=== PATIENT | female | born 1940 | race Caucasian/White ===

== ENCOUNTER 2016-12-03 13:47 | Inpatient (IN) | payer MEDICARE, OTHER ==
[~2016-12-03] VITALS: Ht 165.1 cm; Wt 88.5 kg
[2016-12-13] MEDS ORDERED: NAPR220T95 PO (09:21)
[2016-12-26] MEDS ORDERED: SODIUM CHLOR 0.9% 250 ML INJ 250 ML ONE (05:40)
[2016-12-26] MEDS ORDERED: VANCOMYCIN HCL 1000 MG VIAL ONE (05:41)
[2016-12-26] MEDS ORDERED: LACTATED RINGER'S 1000 ML INJ 1,000 ML ONE (05:41)
[2016-12-26 05:53] VITALS: BP 145/73; PULSE 71; RESP 18; TEMP 98; O2SAT 96
[2016-12-26] MEDS ORDERED: GENTAMICIN SULFATE 80 MG/2 ML VIAL ONE (06:12)
[2016-12-26] MEDS ORDERED: ceFAZolin 2 GM PREMIX 50 ML ONE (06:33)
[2016-12-26] MEDS ORDERED: fentaNYL CITRATE 250 MCG/5 ML AMP ONE (06:44)
[2016-12-26] MEDS ORDERED: ACETAMINOPHEN 1000 MG/100 ML VIAL IV ONE (06:45)
[2016-12-26] MEDS ORDERED: MISCELLANEOUS PHARMACY INFORMATION XX ONE (07:15)
[2016-12-26] MEDS ORDERED: SODIUM CHLORIDE 0.9% FLUSH 10 ML FLUSH IV FLUSH PRN (07:15)
[2016-12-26] MEDS ORDERED: MISCELLANEOUS NURSING INFORMATION XX PRN (07:15)
[2016-12-26] MEDS ORDERED: BISACODYL 10 MG SUPP RECTAL PRN (07:15)
[2016-12-26] MEDS ORDERED: ONDANSETRON HCL 4 MG/2 ML VIAL IVP PRN (07:15)
[2016-12-26] MEDS ORDERED: oxyCODONE/ACETAMINOPHEN 5 MG/325 MG TAB PO PRN (07:15)
[2016-12-26] MEDS ORDERED: ACETAMINOPHEN 325 MG TAB PO PRN (07:15)
[2016-12-26] MEDS ORDERED: Post-op Orders (for Pharmacy) MISC XX ONE (07:15)
[2016-12-26] MEDS ORDERED: TRANEXAMIC ACID INJ 1,000 MG in SODIUM CHLORIDE 0.9% INJ 100 ML IV SCH (07:15)
[2016-12-26] MEDS ORDERED: NALOXONE HCL 0.4 MG/ML AMP IV PRN (07:15)
[2016-12-26] MEDS ORDERED: MAGNESIUM HYDROXIDE SUSP 30 ML CUP PO PRN (07:15)
[2016-12-26] MEDS ORDERED: ALUMINUM/MAGNESIUM/SIMETH 30 ML CUP PO PRN (07:15)
[2016-12-26] MEDS ORDERED: EXPAREL PERI-ARTICULAR INJECTION (TOTAL VOL. 60 ML) P-ARTICULR SCH ×2 (07:45)
[2016-12-26] MEDS: SODIUM CHLORIDE 0.9% FLUSH 10 ML FLUSH IV FLUSH SCH ×2 (09:00→19:56)
--- NOTE | 2016-12-26 09:13 | PD.OP ---
Operative Report Preoperative Diagnosis: (1) Osteoarthritis of right hip Postoperative Diagnosis: (1) Osteoarthritis of right hip Procedure: Right Total Hip Arthroplasty - Anterior Approach Anesthesia: Spinal Surgeon: Roel Renteria MD Industrial Boilermaker(s): Jarett OTERO Operation and Findings: see dictation Roel Renteria MD Dec 26, 2016 09:13
[2016-12-26] MEDS ORDERED: DO NOT ADM ANY ANTICOAGULANT DRUGS PRN (09:31)
[2016-12-26] MEDS: LACTATED RINGER'S 1000 ML INJ 1,000 ML IV SCH ×2 (10:04→19:59)
[2016-12-26] MEDS: HYDROmorphone HCL PCA 6 MG/30 ML IV SCH (10:05)
[2016-12-26 12:00] VITALS: BP 116/56; PULSE 66; RESP 17; TEMP 95.9; O2SAT 99
[2016-12-26] MEDS ORDERED: PROPOFOL 200 MG/20 ML AMP IV ONE (12:00)
[2016-12-26] MEDS ORDERED: ePHEDrine/NS 25 MG/5 ML SYR IV ONE (12:00)
[2016-12-26] MEDS ORDERED: PHENYLEPH/NS 1000 MCG/10 ML SYR IV ONE (12:00)
--- NOTE | 2016-12-26 12:43 | RADRPT ---
EXAM DATE/TIME: 12/26/2016 07:52 [facility] COMPARISON: No previous studies available for comparison. INDICATIONS : Right hip total arthroplasty. OR. MEDICAL HISTORY : Hypercholesterolemia. Hiatal hernia. Arthritis. SURGICAL HISTORY : Tubal ligation. Total hip arthroplasty, left. ENCOUNTER: Initial ACUITY: 1 day PAIN SCORE: Non-responsive. LOCATION: Right hip FINDINGS: 2 AP views of the right hip were obtained and demonstrate the patient status post arthroplasty. The f emoral and acetabular components are intact and in normal alignment. CONCLUSION: Status post right hip arthroplasty. Dangelo Andino MD on December 26, 2016 at 12:41 Board Certified Radiologist. This report was verified electronically.
[2016-12-26] MEDS: ceFAZolin 2 GM PREMIX 50 ML IV SCH ×2 (12:58→17:44)
[2016-12-26] MEDS: PCA - TOTAL MG DILAUDID DELIVERED PER SHIFT OTHER SCH ×2 (14:00→22:00)
--- NOTE | 2016-12-26 14:15 | PD.CONS ---
HPI Service [facility] Consult Requested By Roel Renteria MD Reason for Consult Medical Management. Primary Care Physician Deyanira Sorto MD Diagnoses: History of Present Illness This is a pleasant 76 y/o Female with Severe OA of the Right Hip status post Right Total HIp Arthroplasty. The patient has Primary osteoarthritis of the pelvic area, with Hip pain, Degenerative Disc disease on Lumbar area, Basically the patient states she has no past medical History other from what expressed. Past Family Social History Allergies: Coded Allergies: No Known Allergies (Unverified , 12/26/16) Past Medical History Bilateral Hip Osteoarthritis Degenerative Disc disease Past Surgical History Left Total Hip Arthroplasty Reported Medications Reported Meds & Active Scripts Active Reported Aleve (Naproxen Sodium) 220 Mg Tab 220 Mg PO BID PRN Active Ordered Medications Current Medications Medications (Trade) Dose Ordered Sig/Tim Route Start Time Stop Time Status Last Admin (Lr 1000 ml Inj) 1,000 ml @ 80 mls/hr [id number] IV 12/26/16 07:08 12/26/16 10:04 (NS Flush) 2 ml UNSCH PRN IV FLUSH 12/26/16 07:15 Sodium Chloride 2 ml 2 ml BID IV FLUSH 12/26/16 09:00 (Ancef 2 Gm Premix) 50 ml @ 100 mls/hr Q6H IV 12/26/16 13:00 12/27/16 01:29 12/26/16 12:58 (Xarelto) 10 mg Q24H PO 12/27/16 09:00 Miscellaneous Information UNSCH PRN XX 12/26/16 07:15 (Percocet 5-325 Mg) 1 tab Q4H PRN PO 12/26/16 07:15 (Percocet 5-325 Mg) 2 tab Q4H PRN PO 12/26/16 07:15 (Tylenol) 650 mg Q6H PRN PO 12/26/16 07:15 (Zofran Inj) 4 mg Q6H PRN IVP 12/26/16 07:15 (Colace) 100 mg BID PO 12/27/16 09:00 (Mag-Al Plus Susp Liq) 30 ml Q6H PRN PO 12/26/16 07:15 (Restoril) 15 mg HS PRN PO 12/26/16 21:00 (Dulcolax Supp) 10 mg DAILY PRN RECTAL 12/26/16 07:15 (Milk Of Magnesia Liq) 30 ml DAILY PRN PO 12/26/16 07:15 (Narcan Inj) 0.4 mg UNSCH PRN IV 12/26/16 07:15 12/28/16 07:14 (Dilaudid CROSS COUNTRY/TRACK AND FIELD COACH Inj) 6 mg UNSCH IV 12/26/16 07:15 12/28/16 07:14 12/26/16 10:05 CROSS COUNTRY/TRACK AND FIELD COACH Dosage Infused (Pha) 1 1 Q8HR OTHER 12/26/16 07:15 12/28/16 07:14 (Exparel Pf 1.3% Inj/NS Inj) 60 ml @ 120 mls/hr ONCE P-ARTICULR 12/26/16 07:45 12/27/16 07:44 12/26/16 08:07 Miscellaneous Information ALL NURSING DEPARTME... UNSCH PRN .XX 12/26/16 09:31 12/27/16 09:30 Family History Mother with DM II, CAD Father with CAD Brother with Lung Cancer Social History Lives with her and smoked half of cigarettes daily until sixteen years ago, drinks alcohol occasional. Physical Exam Vital Signs Vital Signs Date Time Temp Pulse Resp B/P Pulse Ox O2 Delivery O2 Flow Rate FiO2 12/26/16 13:02 Nasal Cannula 2.00 12/26/16 10:15 69 14 112/63 94 Nasal Cannula 2 12/26/16 10:05 14 12/26/16 10:00 70 13 110/60 99 Nasal Cannula 3 12/26/16 09:45 73 13 107/56 98 Nasal Cannula 3 12/26/16 09:30 97.4 80 14 109/58 97 Nasal Cannula 3 12/26/16 05:53 98.0 71 18 145/73 96 Physical Exam GENERAL: Obese patient, in no apparent distress. SKIN: No rashes, ecchymoses or lesions. Cool and dry. HEAD: Atraumatic. Normocephalic. No temporal or scalp tenderness. EYES: Pupils equal round and reactive. Extraocular motions intact. No scleral icterus. No injection or drainage. ENT: Nose without bleeding, purulent drainage or septal hematoma. Throat without erythema, tonsillar hypertrophy or exudate. Uvula midline. Airway patent. NECK: Trachea midline. No JVD or lymphadenopathy. Supple, nontender, no meningeal signs. CARDIOVASCULAR: Regular rate and rhythm without murmurs, gallops, or rubs. RESPIRATORY: Clear to auscultation. Breath sounds equal bilaterally. No wheezes , rales, or rhonchi. GASTROINTESTINAL: Abdomen soft, non-tender, nondistended. No hepato-splenomegaly , or palpable masses. No guarding. MUSCULOSKELETAL: Extremities without clubbing,Right Hip dressed. NEUROLOGICAL: Awake and alert. Cranial nerves II through XII intact. Motor and sensory grossly within normal limits. Five out of 5 muscle strength in all muscle groups. Normal speech. Laboratory Laboratory Tests Test 12/26/16 05:55 Blood Type A POSITIVE Antibody Screen NEGATIVE Imaging Last Impressions Hip X-Ray 12/26/16 0000 Signed Impressions: Service Date/Time: December 07:52 - CONCLUSION: Status post right hip arthroplasty. Dangelo Andino MD Assessment and Plan Assessment and Plan This is a pleasant 76 y/o Female with Bilateral Hip OA and Degenerative Disc disease status post Right Total Hip Arthroplasty today, continue Pain medicine, Physical Therapy Assistant In Nursing for discharge, Prakash for DVT prophylaxis starting tomorrow. she was a smoker will give Bronchodilator, Mucolytic and Incentive spirometry and early ambulation recommended complete laboratory by tomorrow, TSH, Free T4, Hemoglobin A1C, Lipid profile. CBC, BMP. Code Status Full Code. Discussed Condition With Patient in the room. Deni Simpson MD Dec 26, 2016 14:15
[2016-12-26 15:21] VITALS: O2SAT 98
[2016-12-26 15:55] VITALS: BP 140/67; PULSE 77; RESP 14; TEMP 96; O2SAT 100
[2016-12-26] MEDS: RESP: ALBUTEROL 2.5 MG/IPRATROPIUM 0.5 MG NEB (SCH) NEB ×2 (16:00→19:57)
[2016-12-26] MEDS: guaiFENesin E.R. 600 MG TAB PO SCH (19:58)
[2016-12-26 20:00] VITALS: BP 144/74; PULSE 66; RESP 16; TEMP 96.4; O2SAT 99
[2016-12-26 20:02] VITALS: O2SAT 97
[2016-12-26] MEDS ORDERED: TEMAZEPAM 15 MG CAP PO PRN (21:00)
[2016-12-27] VITALS: BP 144/72; PULSE 76; RESP 17; TEMP 97; O2SAT 98
[2016-12-27] MEDS: ceFAZolin 2 GM PREMIX 50 ML IV SCH (00:25)
[2016-12-27 04:00] VITALS: BP 150/70; PULSE 88; RESP 16; TEMP 97.3; O2SAT 100
[2016-12-27] MEDS: RESP: ALBUTEROL 2.5 MG/IPRATROPIUM 0.5 MG NEB (SCH) NEB ×4 (04:00→21:22)
[2016-12-27 05:34] LABS: HEMATOCRIT 35.5 % (35.0-46.0); REVIEW FLAG FINAL
[2016-12-27 05:48] LABS: ANION GAP 8 MEQ/L (5-15); BICARBONATE 27.9 MEQ/L (21.0-32.0); BLOOD UREA NITROGEN 9 MG/DL (7-18); CHLORIDE 98 MEQ/L (98-107); FREE T4 0.96 NG/DL (0.76-1.46); GLOMERULAR FILTRATION RATE 90 ML/MIN (>89); MAGNESIUM 2.1 MG/DL (1.5-2.5); POTASSIUM 4.1 MEQ/L (3.5-5.1); SODIUM (NA) 134 MEQ/L (136-145)
[2016-12-27] MEDS: PCA - TOTAL MG DILAUDID DELIVERED PER SHIFT OTHER SCH ×2 (06:00→22:00)
[2016-12-27 07:59] VITALS: BP 149/72; PULSE 75; RESP 16; TEMP 97.8; O2SAT 98
[2016-12-27] MEDS: DOCUSATE SODIUM 100 MG CAP PO SCH ×2 (09:09→20:25)
[2016-12-27] MEDS: guaiFENesin E.R. 600 MG TAB PO SCH ×2 (09:10→20:25)
[2016-12-27] MEDS: RIVAROXABAN 10 MG TAB PO SCH (09:10)
[2016-12-27] MEDS: HYDROmorphone HCL PCA 6 MG/30 ML IV SCH (10:45)
--- NOTE | 2016-12-27 11:04 | HHI.PR ---
Subjective Remarks This is a pleasant 76 y/o Female with Severe OA of the Right Hip status post Right Total HIp Arthroplasty. The patient has Primary osteoarthritis of the pelvic area, with Hip pain, Degenerative Disc disease on Lumbar area, Basically the patient states she has no past medical History other from what expressed. 12/27: Seen in her bedroom discussed with her Daughter Mrs. Lou, No nausea, vomit or diarrhea working with Physical Therapy, complaint of Pain on her Right Hip, encourage to continue PT Objective Vital Signs Date Time Temp Pulse Resp B/P Pulse Ox O2 Delivery O2 Flow Rate FiO2 12/27/16 10:45 18 12/27/16 09:20 21 12/27/16 07:59 97.8 75 16 149/72 98 12/27/16 04:00 97.3 88 16 150/70 100 12/27/16 00:00 97.0 76 17 144/72 98 12/26/16 20:02 97 Nasal Cannula 2.00 12/26/16 20:00 96.4 66 16 144/74 99 12/26/16 18:56 Nasal Cannula 2.00 12/26/16 15:55 96.0 77 14 140/67 100 12/26/16 15:21 98 Nasal Cannula 2.00 12/26/16 13:02 Nasal Cannula 2.00 12/26/16 12:00 95.9 66 17 116/56 99 12/26/16 11:30 97.5 68 15 125/67 97 Nasal Cannula 2 12/26/16 11:15 69 15 123/68 96 Nasal Cannula 2 I/O 12/26/16 12/26/16 12/26/16 12/27/16 12/27/16 12/27/16 07:00 15:00 23:00 07:00 15:00 23:00 Intake Total 2344 ml 623 ml 913 ml Output Total 1100 ml 750 ml 600 ml Balance 1244 ml -127 ml 313 ml Intake Oral 240 ml 240 ml IV Total 644 ml 383 ml 673 ml Other 1700 ml Output Urine Total 800 ml 750 ml 600 ml Estimated Blood Loss 300 ml # Bowel Movements 0 0 Result Diagram: 12/27/16 0412 12/27/16 0412 Imaging Last Impressions Hip X-Ray 12/26/16 0000 Signed Impressions: Service Date/Time: December 07:52 - CONCLUSION: Status post right hip arthroplasty. Dangelo Andino MD Procedures status post Right Total Hip Arthroplasty 12/26/16 Other Results Laboratory Tests Test 12/26/16 12/27/16 05:55 04:12 Blood Type A POSITIVE Antibody Screen NEGATIVE Hemoglobin 12.0 GM/DL Hematocrit 35.5 % Sodium Level 134 MEQ/L Potassium Level 4.1 MEQ/L Chloride Level 98 MEQ/L Carbon Dioxide Level 27.9 MEQ/L Anion Gap 8 MEQ/L Blood Urea Nitrogen 9 MG/DL Creatinine 0.64 MG/DL Estimat Glomerular Filtration 90 ML/MIN Rate Random Glucose 98 MG/DL Calcium Level 8.4 MG/DL Phosphorus Level 2.8 MG/DL Magnesium Level 2.1 MG/DL Free Thyroxine 0.96 NG/DL Thyroid Stimulating Hormone 1.620 uIU/ML 3rd Gen Objective Remarks GENERAL: Obese patient, in no apparent distress. SKIN: No rashes, ecchymoses or lesions. Cool and dry. HEAD: Atraumatic. Normocephalic. No temporal or scalp tenderness. EYES: Pupils equal round and reactive. Extraocular motions intact. No scleral icterus. No injection or drainage. ENT: Nose without bleeding, purulent drainage or septal hematoma. Throat without erythema, tonsillar hypertrophy or exudate. Uvula midline. Airway patent. NECK: Trachea midline. No JVD or lymphadenopathy. Supple, nontender, no meningeal signs. CARDIOVASCULAR: Regular rate and rhythm without murmurs, gallops, or rubs. RESPIRATORY: Clear to auscultation. Breath sounds equal bilaterally. No wheezes , rales, or rhonchi. GASTROINTESTINAL: Abdomen soft, non-tender, nondistended. No hepato-splenomegaly , or palpable masses. No guarding. MUSCULOSKELETAL: Extremities without clubbing,Right Hip dressed. NEUROLOGICAL: Awake and alert. Cranial nerves II through XII intact. Motor and sensory grossly within normal limits. Five out of 5 muscle strength in all muscle groups. Normal speech. Medications and IVs Current Medications Medications (Trade) Dose Ordered Sig/Tim Route Start Time Stop Time Status Last Admin (Lr 1000 ml Inj) 1,000 ml @ 80 mls/hr [id number] IV 12/26/16 07:08 12/26/16 19:59 (NS Flush) 2 ml UNSCH PRN IV FLUSH 12/26/16 07:15 (NS Flush) 2 ml BID IV FLUSH 12/26/16 09:00 (Xarelto) 10 mg Q24H PO 12/27/16 09:00 12/27/16 09:10 Miscellaneous Information UNSCH PRN XX 12/26/16 07:15 (Percocet 5-325 Mg) 1 tab Q4H PRN PO 12/26/16 07:15 (Percocet 5-325 Mg) 2 tab Q4H PRN PO 12/26/16 07:15 (Tylenol) 650 mg Q6H PRN PO 12/26/16 07:15 (Zofran Inj) 4 mg Q6H PRN IVP 12/26/16 07:15 12/26/16 17:44 (Colace) 100 mg BID PO 12/27/16 09:00 12/27/16 09:09 (Mag-Al Plus Susp Liq) 30 ml Q6H PRN PO 12/26/16 07:15 (Restoril) 15 mg HS PRN PO 12/26/16 21:00 (Dulcolax Supp) 10 mg DAILY PRN RECTAL 12/26/16 07:15 (Milk Of Magnesia Liq) 30 ml DAILY PRN PO 12/26/16 07:15 (Narcan Inj) 0.4 mg UNSCH PRN IV 12/26/16 07:15 12/28/16 07:14 (Dilaudid AUTO SELF SERVICE STATION ATTENDANT Inj) 6 mg UNSCH IV 12/26/16 07:15 12/28/16 07:14 12/27/16 10:45 AUTO SELF SERVICE STATION ATTENDANT Dosage Infused (Pha) 1 Q8HR OTHER 12/26/16 07:15 12/28/16 07:14 12/27/16 06:00 (Mucinex Er) 600 mg BID PO 12/26/16 21:00 12/27/16 09:10 A/P Assessment and Plan This is a pleasant 76 y/o Female with Bilateral Hip OA and Degenerative Disc disease status post Right Total Hip Arthroplasty today, continue Pain medicine, Physical Therapy Business Office Assistant for discharge, Prakash for DVT prophylaxis starting tomorrow. she was a smoker will give Bronchodilator, Mucolytic and Incentive spirometry and early ambulation recommended, today stable continue present care, laboratory reviewed Hemoglobin 12 DVT prophylaxis with Xarelto Code Status Full Code. Discussed Condition With Patient in the room. and her Daughter Mrs. Lou. Discharge Planning Okay to Discharge from medicine standpoint once indicated so by specialist. Deni Simpson MD Dec 27, 2016 11:04
[2016-12-27 12:00] VITALS: BP 140/60; PULSE 83; RESP 14; TEMP 96.7; O2SAT 95
[2016-12-27 12:13] LABS: HEMOGLOBIN A1a 1.4 %; HEMOGLOBIN A1b 1.8 %; HEMOGLOBIN Ao 85.4 %; HEMOGLOBIN LA1C 1.9 %; HEMOGLOBIN P3 3.6 %
[2016-12-27] MEDS: oxyCODONE/ACETAMINOPHEN 5 MG/325 MG TAB PO PRN ×2 (14:00→18:25)
[2016-12-27 16:00] VITALS: BP 121/57; PULSE 85; RESP 16; TEMP 95.5; O2SAT 94
--- NOTE | 2016-12-27 17:40 | MP ---
cc: KRISTINA ROCK DATE OF SURGERY 12/26/16 PREOPERATIVE DIAGNOSIS Right hip severe osteoarthritis. POSTOPERATIVE DIAGNOSIS Right hip severe osteoarthritis. PROCEDURE Right total hip arthroplasty - anterior approach using [employer] high offset 11-mm corail stem, a 36 mm +8.5 metallic femoral head and a 52 mm pinnacle cup with neutral polyethylene liner. ANESTHESIA Spinal SURGEON Julien Rock MD EXCEPTIONAL NEEDS TEACHER SURGEON SHANNA Stover ESTIMATED BLOOD LOSS 200 mL DRAINS None SPECIMEN None COMPLICATIONS None known. INDICATION Parveen Wynne is a 76-year-old female with severe debilitating right hip [id number] osteoarthritis. She is indicated for a total hip arthroplasty. Risks, benefits have thoroughly been discussed and a detailed informed consent has been obtained. The airplane first officer, Jarett Powers, is an advanced registered nurse practitioner who is sub specialized in orthopedic surgery. His skill set was medically necessary for the performance of the operation. PROCEDURE IN DETAIL The patient was brought to the operating room, given a spinal, placed on a well-padded Sofya table, prepped and draped in usual sterile fashion. IV antibiotics were given. Time-out was completed. The anterior approach to the hip performed with coagulation of the crossing vessels, identification of the hip capsule. T capsulotomy tag stitch placed. Retractors about the femoral neck in accordance with preoperative planning. Oscillating saw used to perform a femoral neck cut and then proceeded to remove the femoral head noting the severe arthritis. The acetabular labrum was resected, then proceeded to place deep retractors about the acetabulum, sequential reaming up to size 51 and impacted a 52 mm cup into position with excellent stability. Hole eliminator placed, polyethylene placed. Attention was drawn to the femur. Lifting hook was used. The leg externally rotated, dropped across the opposite side. A deep retractor was placed. We used a box chisel, released the superior capsule, proceeded with jermaine vieira to a size 8, size 9, size 10, size 11. With the size [address] place, we then did proceed with calcar reaming and then did a trial reduction with the high offset neck length because that is what she has on the contralateral side. This size looked very good, excellent fit. This was done to the final component. We proceeded to impact the final component in place and then trialed neck length again and decided to go with the 8.5 head length, reduced. Excellent reduction and stability. We proceeded to irrigate out with copious amounts of irrigation. We closed the capsule layer then proceed to close in layers of absorbable suture, subcuticular on the skin. Steri-Strips applied. Sterile dressing applied. The patient was awaken and returned to recovery room in stable condition. MD MICHELE Mario/ /9:11 AM /5:29 PM
--- NOTE | 2016-12-27 18:44 | PD.ORT.PN ---
Subjective Subjective Remarks Patient comfortable. Pain controlled. OOB sitting on commode. Daughter present. Objective Vitals Vital Signs Date Time Temp Pulse Resp B/P Pulse Ox O2 Delivery O2 Flow Rate FiO2 12/27/16 16:00 95.5 85 16 121/57 94 12/27/16 12:00 96.7 83 14 140/60 95 12/27/16 10:45 18 12/27/16 09:20 21 12/27/16 07:59 97.8 75 16 149/72 98 12/27/16 04:00 97.3 88 16 150/70 100 12/27/16 00:00 97.0 76 17 144/72 98 12/26/16 20:02 97 Nasal Cannula 2.00 12/26/16 20:00 96.4 66 16 144/74 99 12/26/16 18:56 Nasal Cannula 2.00 I/O 12/26/16 12/26/16 12/26/16 12/27/16 12/27/16 12/27/16 07:00 15:00 23:00 07:00 15:00 23:00 Intake Total 2344 ml 623 ml 913 ml 720 ml Output Total 1100 ml 750 ml 600 ml 800 ml Balance 1244 ml -127 ml 313 ml -80 ml Intake Oral 240 ml 240 ml 720 ml IV Total 644 ml 383 ml 673 ml Other 1700 ml Output Urine Total 800 ml 750 ml 600 ml 800 ml Estimated Blood Loss 300 ml # Voids 3 # Bowel Movements 0 0 Result Diagram: 12/27/16 0412 12/27/16 0412 Procedures Right Total Hip Arthroplasty Anterior Approach Objective Remarks Right Hip dressing C/D/I calves soft negative Homans NVI Assessment & Plan Assessment and Plan POD #1 Left Total Hip Arthroplasty Anterior Approach PLAN: Pain management - Percocet DVT prophylaxis - Xarelto Physical therapy - weight bearing as tolerated No touch dressing Discharge planning - anticipating Home with [facility] Friday F/U in [address] Renteria or SHANNA in office Jarett Powers Dec 27, 2016 18:44
[2016-12-27] MEDS ORDERED: OXYC1TAB63 PO (18:46)
[2016-12-27] MEDS ORDERED: XARE10TA PO (18:46)
--- NOTE | 2016-12-27 19:04 | HHI.FF ---
Face to Face Verification Diagnosis: (1) Status post left hip replacement Physical Therapy Gait training Hip: Total hip, Protocol: Right Right LE Weight Bearing: WB as tolerated Right LE Range of Motion: Active Assistive ROM Left LE Weight Bearing: WB as tolerated Left LE Range of Motion: Active ROM Nursing Dressing Changes: Do not change dressing I have seen patient Parveen Wynne on 12/27/16. My clinical findings support the need for the requested home health care services because: High risk of falls I certify that my clinical findings support that this patient is homebound because: Post-op weakness Jarett Powers Dec 27, 2016 19:04
[2016-12-27] MEDS ORDERED: COMMODE 3-IN-11 MIS (19:06)
[2016-12-27] MEDS ORDERED: WALKER WHEELS/F1 MIS (19:06)
[2016-12-27 19:30] VITALS: BP 146/54; PULSE 87; RESP 17; TEMP 99.8; O2SAT 92
[2016-12-27] MEDS: SODIUM CHLORIDE 0.9% FLUSH 10 ML FLUSH IV FLUSH SCH (20:27)
[2016-12-28] VITALS: BP 145/68; PULSE 97; RESP 18; TEMP 99.7; O2SAT 92
[2016-12-28] MEDS: oxyCODONE/ACETAMINOPHEN 5 MG/325 MG TAB PO PRN ×3 (02:48→12:53)
[2016-12-28] MEDS: RESP: ALBUTEROL 2.5 MG/IPRATROPIUM 0.5 MG NEB (SCH) NEB ×2 (04:00→09:53)
[2016-12-28 04:45] VITALS: BP 137/65; PULSE 94; RESP 19; TEMP 97.9; O2SAT 92
[2016-12-28] MEDS: PCA - TOTAL MG DILAUDID DELIVERED PER SHIFT OTHER SCH (06:00)
--- NOTE | 2016-12-28 07:09 | PD.ORT.PN ---
Subjective Post Op Day #: 2 Subjective Remarks Patient sitting upright comfortable in bed. Admits she walked successfully yesterday down the [place] with PT. Accompanied by family member. Feels ready to be discharged to home today. Objective Vitals Vital Signs Date Time Temp Pulse Resp B/P Pulse Ox O2 Delivery O2 Flow Rate FiO2 12/28/16 04:45 97.9 94 19 137/65 92 12/28/16 00:00 99.7 97 18 145/68 92 12/27/16 19:40 Room Air 12/27/16 19:30 99.8 87 17 146/54 92 12/27/16 16:00 95.5 85 16 121/57 94 12/27/16 12:00 96.7 83 14 140/60 95 12/27/16 10:45 18 12/27/16 09:20 21 12/27/16 07:59 97.8 75 16 149/72 98 I/O 12/27/16 12/27/16 12/27/16 12/28/16 12/28/16 12/28/16 07:00 15:00 23:00 07:00 15:00 23:00 Intake Total 913 ml 720 ml 1392 ml 240 ml Output Total 600 ml 800 ml Balance 313 ml -80 ml 1392 ml 240 ml Intake Oral 240 ml 720 ml 480 ml 240 ml IV Total 673 ml 912 ml Output Urine Total 600 ml 800 ml # Voids 3 1 5 # Bowel Movements 0 0 0 Result Diagram: 12/27/16 0412 12/27/16 0412 Procedures Right Total Hip Arthroplasty Anterior Approach Objective Remarks Right Hip dressing C/D/I calves soft negative Homans NVI Assessment & Plan Ortho Post Op Day #: 2 Problem List: (1) Status post total hip replacement, right (2) Osteoarthritis of right hip (3) Primary localized osteoarthrosis, pelvic region and thigh Assessment and Plan POD #2 Right Total Hip Arthroplasty Anterior Approach PLAN: Pain management - Percocet DVT prophylaxis - Xarelto Physical therapy - weight bearing as tolerated No touch dressing Discharge planning - discharge today to Home with [facility] F/U in [address] Renteria or SHANNA in office Yolanda Malik Dec 28, 2016 07:09
[2016-12-28] MEDS: guaiFENesin E.R. 600 MG TAB PO SCH (07:50)
[2016-12-28] MEDS: RIVAROXABAN 10 MG TAB PO SCH (07:50)
[2016-12-28] MEDS: DOCUSATE SODIUM 100 MG CAP PO SCH (07:50)
[2016-12-28 08:00] VITALS: BP 119/52; PULSE 80; RESP 16; TEMP 98.1; O2SAT 94
[2016-12-28] MEDS: SODIUM CHLORIDE 0.9% FLUSH 10 ML FLUSH IV FLUSH SCH (08:52)
--- NOTE | 2016-12-28 09:45 | HHI.PR ---
Subjective Remarks This is a pleasant 76 y/o Female with Severe OA of the Right Hip status post Right Total HIp Arthroplasty. The patient has Primary osteoarthritis of the pelvic area, with Hip pain, Degenerative Disc disease on Lumbar area, Basically the patient states she has no past medical History other from what expressed. 12/28: Seen in her bedroom, her Nurse Miss Benavides, ready to go home, no nausea, vomit or diarrhea, Her Daughter Mrs. Lou, worked with Physical Therapy. Objective Vital Signs Date Time Temp Pulse Resp B/P Pulse Ox O2 Delivery O2 Flow Rate FiO2 12/28/16 07:59 Room Air 12/28/16 04:45 97.9 94 19 137/65 92 12/28/16 00:00 99.7 97 18 145/68 92 12/27/16 19:40 Room Air 12/27/16 19:30 99.8 87 17 146/54 92 12/27/16 16:00 95.5 85 16 121/57 94 12/27/16 12:00 96.7 83 14 140/60 95 12/27/16 10:45 18 I/O 12/27/16 12/27/16 12/27/16 12/28/16 12/28/16 12/28/16 07:00 15:00 23:00 07:00 15:00 23:00 Intake Total 913 ml 720 ml 1392 ml 404 ml Output Total 600 ml 800 ml Balance 313 ml -80 ml 1392 ml 404 ml Intake Oral 240 ml 720 ml 480 ml 240 ml IV Total 673 ml 912 ml 164 ml Output Urine Total 600 ml 800 ml # Voids 3 1 5 # Bowel Movements 0 0 0 Result Diagram: 12/27/16 0412 12/27/16 0412 Imaging Last Impressions Hip X-Ray 12/26/16 0000 Signed Impressions: Service Date/Time: December 07:52 - CONCLUSION: Status post right hip arthroplasty. Dangelo Andino MD Procedures status post Right Total Hip Arthroplasty 12/26/16 Other Results Laboratory Tests Test 12/26/16 12/27/16 05:55 04:12 Blood Type A POSITIVE Antibody Screen NEGATIVE Hemoglobin 12.0 GM/DL Hematocrit 35.5 % Sodium Level 134 MEQ/L Potassium Level 4.1 MEQ/L Chloride Level 98 MEQ/L Carbon Dioxide Level 27.9 MEQ/L Anion Gap 8 MEQ/L Blood Urea Nitrogen 9 MG/DL Creatinine 0.64 MG/DL Estimat Glomerular Filtration 90 ML/MIN Rate Random Glucose 98 MG/DL Hemoglobin A1c 5.4 % Calcium Level 8.4 MG/DL Phosphorus Level 2.8 MG/DL Magnesium Level 2.1 MG/DL Free Thyroxine 0.96 NG/DL Thyroid Stimulating Hormone 1.620 uIU/ML 3rd Gen Objective Remarks GENERAL: Obese patient, in no apparent distress. SKIN: No rashes, ecchymoses or lesions. Cool and dry. HEAD: Atraumatic. Normocephalic. No temporal or scalp tenderness. EYES: Pupils equal round and reactive. Extraocular motions intact. No scleral icterus. No injection or drainage. ENT: Nose without bleeding, purulent drainage or septal hematoma. Throat without erythema, tonsillar hypertrophy or exudate. Uvula midline. Airway patent. NECK: Trachea midline. No JVD or lymphadenopathy. Supple, nontender, no meningeal signs. CARDIOVASCULAR: Regular rate and rhythm without murmurs, gallops, or rubs. RESPIRATORY: Clear to auscultation. Breath sounds equal bilaterally. No wheezes , rales, or rhonchi. GASTROINTESTINAL: Abdomen soft, non-tender, nondistended. No hepato-splenomegaly , or palpable masses. No guarding. MUSCULOSKELETAL: Extremities without clubbing,Right Hip dressed. NEUROLOGICAL: Awake and alert. Cranial nerves II through XII intact. Motor and sensory grossly within normal limits. Five out of 5 muscle strength in all muscle groups. Normal speech. Medications and IVs Current Medications Medications (Trade) Dose Ordered Sig/Tim Route Start Time Stop Time Status Last Admin (NS Flush) 2 ml UNSCH PRN IV FLUSH 12/26/16 07:15 (NS Flush) 2 ml BID IV FLUSH 12/26/16 09:00 (Xarelto) 10 mg Q24H PO 12/27/16 09:00 12/28/16 07:50 Miscellaneous Information UNSCH PRN XX 12/26/16 07:15 (Percocet 5-325 Mg) 1 tab Q4H PRN PO 12/26/16 07:15 12/28/16 07:51 (Percocet 5-325 Mg) 2 tab Q4H PRN PO 12/26/16 07:15 (Tylenol) 650 mg Q6H PRN PO 12/26/16 07:15 (Zofran Inj) 4 mg Q6H PRN IVP 12/26/16 07:15 12/26/16 17:44 (Colace) 100 mg BID PO 12/27/16 09:00 12/28/16 07:50 (Mag-Al Plus Susp Liq) 30 ml Q6H PRN PO 12/26/16 07:15 (Restoril) 15 mg HS PRN PO 12/26/16 21:00 (Dulcolax Supp) 10 mg DAILY PRN RECTAL 12/26/16 07:15 (Milk Of Magnesia Liq) 30 ml DAILY PRN PO 12/26/16 07:15 12/28/16 07:51 (Mucinex Er) 600 mg BID PO 12/26/16 21:00 12/28/16 07:50 A/P Assessment and Plan This is a pleasant 76 y/o Female with Bilateral Hip OA and Degenerative Disc disease status post Right Total Hip Arthroplasty today, continue Pain medicine, Physical Therapy Scrap Piler for discharge, Prakash for DVT prophylaxis starting tomorrow. she was a smoker will give Bronchodilator, Mucolytic and Incentive spirometry and early ambulation recommended, today stable continue present care, laboratory reviewed Hemoglobin 12 DVT prophylaxis with Xarelto Code Status Full Code. Discussed Condition With Patient in the room. and her Daughter Mrs. Lou. Discharge Planning Okay to Discharge from medicine standpoint once indicated by her Attending physician Deni Simpson MD Dec 28, 2016 09:45
[2016-12-28 12:00] VITALS: BP 122/62; PULSE 82; RESP 16; TEMP 97.1; O2SAT 93
--- NOTE | 2017-01-06 16:06 | MD ---
cc: KRISTINA ROCK M.D. ADMISSION DATE: 12/26/2016 DISCHARGE DATE: 12/28/2016 ADMITTING DIAGNOSIS Right hip severe osteoarthritis. PROCEDURE Right total hip arthroplasty. BRIEF HISTORY The patient is a 76-year-old female with severe debilitating right hip [id number] osteoarthritis. She is indicated for a total hip arthroplasty. She underwent preoperative clearance, the surgical consent was signed. HOSPITAL COURSE She came in through same-day surgery, underwent surgery without complication. She was maintained on 23-hour IV antibiotics. She was initiated with DVT prophylaxis. Medical consultation was obtained, physical therapy consultation was obtained. She was transitioned from IV to p.o. pain medication, did well during the hospitalization, did not have complications and on postop day #2 she was discharged. Labs and vital signs remained stable. DISPOSITION She was discharged home with home health care for continuation of rehabilitation. She was to continue on standard medication as well as prescription for Percocet for pain management, Xarelto for DVT prophylaxis. She will continue on regular diet with followup scheduled in the office in two weeks. Dictated by: SHANNA Ngo MD MICHELE Mario/CRISTIAN /8:51 AM /4:06 PM
== END 2016-12-28 14:51 | disposition home health service (06) | DRG 470 ==
LOC: HSDI 12-26 05:05 → N06A 12-26 12:08
PROVIDERS: ADMIT Orthopaedic Surgery Sports Medicine; ATTEND Orthopaedic Surgery Sports Medicine
PROC: 0SR90JA Replacement of Right Hip Joint with Synthetic Substitute, Uncemented, Open Approach (ICD-10-PCS; principal; 2016-12-26 07:02)
DX: M16.11 Unilateral primary osteoarthritis, right hip (principal); E66.9 Obesity, unspecified; M51.36 Other intervertebral disc degeneration, lumbar region; G25.81 Restless legs syndrome; Z87.891 Personal history of nicotine dependence; Z68.32 Body mass index [BMI] 32.0-32.9, adult; Z96.642 Presence of left artificial hip joint
CPT/HCPCS: 73502; 76000; 80048; 83036; 83735; 84100; 84439; 84443; 85014; 85018; 86850; 86900; 86901; 94150; 94640; 94664; C1776; C9290; J0131; J0690; J1170; J1580; J2370; J2405; J3010; J3370; J7050; J7120

== ENCOUNTER → 2016-12-13 | Outpatient (CLI) | payer MEDICARE, OTHER ==
[~2016-12-13] MED LIST: ACET650T10 PO; ASPI81TA21 PO; CELE200C PO; COMMODE 3-IN-11 MIS; COUM7.5T PO; NAPR220T95 PO; NORC10TA2 PO; OXYC1TAB63 PO; RIVA10 PO; WALKER WHEELS/F1 MIS; XARE10TA PO; Z.0.COMMODE-3:1; Z.0.WALKERFRONT
[2016-12-13 09:36] LABS: AUTOMATED NEUTROPHIL # 2.7 TH/MM3 (1.8-7.7); EOSINOPHIL # 0.2 TH/MM3 (0-0.4); EOSINOPHIL % 4.7 % (0.0-4.0); HEMATOCRIT 40.3 % (35.0-46.0); HEMO FLAGS DIFF FINAL; LYMPH % 23.1 % (9.0-44.0); MEAN CELL VOLUME 88.3 FL (80.0-100.0); MEAN CORPUSCULAR HEMOGLOBIN 30.2 PG (27.0-34.0); MEAN CORPUSCULAR HGB CONC 34.2 % (32.0-36.0); MONO % 9.7 % (0.0-8.0); NEUT % 61.5 % (16.0-70.0); PLATELET COUNT 284 TH/MM3 (150-450); RED BLOOD COUNT 4.56 MIL/MM3 (4.00-5.30); RED CELL DISTRIBUTION WIDTH 13.5 % (11.6-17.2); WHITE BLOOD COUNT 4.3 TH/MM3 (4.0-11.0)
[2016-12-13 09:47] LABS: APTT (PATIENT) 25.2 SEC (24.3-30.1); INTERNATIONAL NORMALIZED RATIO 0.9 RATIO
[2016-12-13 10:01] LABS: ALKALINE PHOSPHATASE 74 U/L (45-117); ALT (GPT) 27 U/L (10-53); ANION GAP 7 MEQ/L (5-15); AST (GOT) 17 U/L (15-37); BICARBONATE 29.3 MEQ/L (21.0-32.0); BLOOD UREA NITROGEN 12 MG/DL (7-18); CHLORIDE 102 MEQ/L (98-107); GLOMERULAR FILTRATION RATE 74 ML/MIN (>89); GLUCOSE,FASTING 85 MG/DL (74-99); POTASSIUM 4.3 MEQ/L (3.5-5.1); SODIUM (NA) 138 MEQ/L (136-145); TOTAL BILIRUBIN ADULT 0.4 MG/DL (0.2-1.0)
[2016-12-13 11:08] LABS: BLOOD, URINE NEG (NEG); COMMENT (UR) CULT NOT INDICATED; CULTURE IF INDICATED CULT NOT INDICATED; GLUCOSE,URINE NEG (NEG); KETONE, URINE NEG (NEG); MUCUS URINE FEW /lpf (OCC); NITRITE,URINE NEG (NEG); SQUAMOUS EPITHELIAL CELL URINE 5 /hpf (0-5); URINE COLOR YELLOW (YELLW/STRAW)
--- NOTE | 2016-12-13 11:51 | RADRPT ---
EXAM DATE/TIME: 12/13/2016 11:13 [facility] COMPARISON: CHEST PA & LAT, July 24, 2015, 11:32. INDICATIONS : Evaluate for pneumonia, pneumothorax, or communicable disease. Pre op for hip surgery. MEDICAL HISTORY : Hypercholesterolemia. Hiatal hernia. Arthritis. SURGICAL HISTORY : Tubal ligation. ENCOUNTER: Initial ACUITY: 1 day PAIN SCORE: 0/10 LOCATION: Chest FINDINGS: Granuloma seen laterally in the left lung. Right lung is clear. Heart and pulmonary vascularity is no rmal. Portion of bony skeleton visualized unremarkable. CONCLUSION: Granuloma otherwise negative. Garo Donis MD FACR on December 13, 2016 at 11:35 Board Certified Radiologist. This report was verified electronically.
--- NOTE | 2016-12-13 16:44 | EKG ---
Date Performed: 12/13/2016 Time Performed: 09:15:20 PTAGE: 76 years EKG: Sinus rhythm INCOMPLETE RIGHT BUNDLE BRANCH BLOCK BORDERLINE ECG Compared to prior tracing no significant change PREVIOUS TRACING : 07/24/2015 09.23 DOCTOR: Adriana De La O Interpretating Date/Time 12/13/2016 16:42:05
== END ==
LOC: CPRE 08:42
PROVIDERS: ATTEND Orthopaedic Surgery Sports Medicine
DX: Z01.810 Encounter for preprocedural cardiovascular examination (principal); Z01.811 Encounter for preprocedural respiratory examination; Z01.812 Encounter for preprocedural laboratory examination; Z96.60 Presence of unspecified orthopedic joint implant; M79.609 Pain in unspecified limb
CPT/HCPCS: 36415; 71020; 80053; 81001; 85025; 85610; 85730; 93005

== ENCOUNTER 2017-01-20 08:49 | Inpatient (IN) | payer MEDICARE, OTHER ==
[2017-01-20] VITALS (16 sets, daily range): BP systolic 103–155; BP diastolic 46–69; PULSE 76–90; RESP 17–28; TEMP 97.8–99.5; O2SAT 95–99
[~2017-01-20] VITALS: Ht 162.6 cm; Wt 87.9 kg
[~2017-01-20 08:49] MED LIST changes: -ACET650T10 PO; -ASPI81TA21 PO; -CELE200C PO; -COUM7.5T PO; -NAPR220T95 PO; -NORC10TA2 PO; -RIVA10 PO; -Z.0.COMMODE-3:1; -Z.0.WALKERFRONT
--- NOTE | 2017-01-20 09:27 | PD ---
HPI Chief Complaint: Respiratory Symptoms Time Seen by Provider: 09:02 Travel History International Travel<30 days: No Contact w/Intl Traveler<30days: No Traveled to known affect area: No History of Present Illness HPI The patient was seen and examined in the presence of the nurse. She complains of right lower chest pleuritic pain and shortness of breath. She takes deep breath she gets a sharp stabbing pain that resolves after the breath. Patient had hip surgery one month ago. She was supposed to take her blood thinners for a full month but quit after 2 weeks. No history of blood clot. She is walking less than usual. She is ambulatory however. Symptoms severity is moderate. Duration 3 days. No alleviating factors. PFSH Past Medical History Arthritis: Yes Asthma: No Autoimmune Disease: No Anxiety: No Depression: No Heart Rhythm Problems: No Cancer: No Cardiovascular Problems: No High Cholesterol: Yes Chest Pain: No Congestive Heart Failure: No COPD: No Cerebrovascular Accident: No Diabetes: No Endocrine: No GERD: No Genitourinary: No Hepatitis: No Hiatal Hernia: Yes Immune Disorder: No Implanted Vascular Access Dvce: Yes Kidney Stones: No Musculoskeletal: Yes (OA) Neurologic: No Psychiatric: No Reproductive: No Respiratory: No Migraines: No Renal Failure: No Seizures: No Sickle Cell Disease: No Sleep Apnea: No Thyroid Disease: No Ulcer: No Influenza Vaccination: Yes ?: Not Past Surgical History Abdominal Surgery: No AICD: No Arteriovenous Shunt: No Cardiac Surgery: No Ear Surgery: No Endocrine Surgery: No Eye Surgery: No Genitourinary Surgery: No Gynecologic Surgery: Yes (tubal ligation) Insulin Pump: No Joint Replacement: Yes (LEFT HIP; RIGHT HIP ONE MONTH AGO) Oral Surgery: No Pacemaker: No Thoracic Surgery: No Other Surgery: Yes Social History Alcohol Use: Yes (OCCAS) Tobacco Use: No (QUIT 12 YEARS AGO) Substance Use: No Allergies-Medications (Allergen,Severity, Reaction): Coded Allergies: No Known Allergies (Unverified , 01/20/17) Reported Meds & Prescriptions Reported Meds & Active Scripts Active Review of Systems General / Constitutional: No: Fever Eyes: No: Visual changes HENT: No: Headaches Cardiovascular: Positive: Chest Pain or Discomfort Respiratory: Positive: Shortness of Breath Gastrointestinal: No: Abdominal Pain Genitourinary: No: Dysuria Musculoskeletal: No: Pain Skin: No Rash Neurologic: No: Weakness Psychiatric: No: Depression Endocrine: No: Polydipsia Hematologic/Lymphatic: No: Easy Bruising Physical Exam Narrative GENERAL: Well-nourished, well-developed patient with pleuritic chest pain SKIN: Focused skin assessment reveals no rash and nodules. Skin is Warm and dry. HEAD: Atraumatic. Normocephalic. EYES: Pupils equal and round. No scleral icterus. No injection or drainage. ENT: No nasal bleeding or discharge. Mucous membranes pink and moist. NECK: Trachea midline. No JVD. CARDIOVASCULAR: Regular rate and rhythm. No murmur appreciated. RESPIRATORY: No accessory muscle use. Clear to auscultation. Breath sounds equal bilaterally. GASTROINTESTINAL: Abdomen soft, non-tender, nondistended. Hepatic and splenic margins not palpable. MUSCULOSKELETAL: No obvious deformities. No clubbing. No cyanosis. No edema. Readily reproducible right lower chest wall tenderness. NEUROLOGICAL: Awake and alert. No obvious cranial nerve deficits. Motor grossly within normal limits. Normal speech. PSYCHIATRIC: Appropriate mood and affect; insight and judgment normal. Data Data Last Documented VS Vital Signs Date Time Temp Pulse Resp B/P Pulse Ox O2 Delivery O2 Flow Rate FiO2 01/20/17 10:14 20 97 Nasal Cannula 2 01/20/17 10:13 78 117/60 01/20/17 09:04 97.8 Orders Complete Blood Count With Diff (01/20/17 09:22) Basic Metabolic Panel (Bmp) (01/20/17 09:22) Act Partial Throm Time (Ptt) (01/20/17 09:22) Prothrombin Time / Inr (Pt) (01/20/17 09:22) Iv Access Insert/Monitor (01/20/17 09:22) Electrocardiogram (01/20/17 09:22) Ecg Monitoring (01/20/17 09:22) Oximetry (01/20/17 09:22) Chest, Single Ap (01/20/17 09:22) Sodium Chloride 0.9% Flush (Ns Flush) (01/20/17 09:30) Ct Pulmonary Angiogram (01/20/17 ) Iohexol 350 Inj (Omnipaque 350 Inj) (01/20/17 10:29) Labs Laboratory Tests Test 01/20/17 09:25 White Blood Count 6.2 TH/MM3 Red Blood Count 4.14 MIL/MM3 Hemoglobin 12.0 GM/DL Hematocrit 35.8 % Mean Corpuscular Volume 86.4 FL Mean Corpuscular Hemoglobin 28.9 PG Mean Corpuscular Hemoglobin 33.4 % Concent Red Cell Distribution Width 12.4 % Platelet Count 210 TH/MM3 Mean Platelet Volume 8.0 FL Neutrophils (%) (Auto) 72.3 % Lymphocytes (%) (Auto) 14.0 % Monocytes (%) (Auto) 10.0 % Eosinophils (%) (Auto) 2.9 % Basophils (%) (Auto) 0.8 % Neutrophils # (Auto) 4.5 TH/MM3 Lymphocytes # (Auto) 0.9 TH/MM3 Monocytes # (Auto) 0.6 TH/MM3 Eosinophils # (Auto) 0.2 TH/MM3 Basophils # (Auto) 0.0 TH/MM3 CBC Comment DIFF FINAL Differential Comment Prothrombin Time 10.7 SEC Prothromb Time International 1.0 RATIO Ratio Activated Partial 26.7 SEC Thromboplast Time Sodium Level 140 MEQ/L Potassium Level 4.0 MEQ/L Chloride Level 104 MEQ/L Carbon Dioxide Level 26.6 MEQ/L Anion Gap 9 MEQ/L Blood Urea Nitrogen 11 MG/DL Creatinine 0.81 MG/DL Estimat Glomerular Filtration 69 ML/MIN Rate Random Glucose 92 MG/DL Calcium Level 9.6 MG/DL [facility] Medical Decision Making Medical Screen Exam Complete: Yes Emergency Medical Condition: Yes Medical Record Reviewed: Yes Differential Diagnosis PE, pleurisy, pneumothorax, chest wall pain Narrative Course I have reviewed the patient's electronic medical record. Patient had hip surgery one month ago IV placed CBC is normal Metabolic profile is normal Coagulation studies are normal I reviewed her EKG which shows sinus rhythm but no acute ST elevation Extended cardiac monitoring reveals sinus rhythm without ectopy I reviewed her chest x-ray which shows no pneumothorax or consolidation CT angiogram of the chest done to rule out PE given her sharp stabbing pleuritic pain after hip surgery with additional risk factors of immobility and noncompliance of blood thinners CT angiogram reveals extensive bilateral pulmonary embolus including saddle embolus I have initiated heparin drip with bolus Patient will require inpatient admission with IV heparin I reviewed with the hospitalist will admit Diagnosis Primary Impression: Bilateral pulmonary embolism Admitting Information Admitting Physician Requests: Admit Asaf Paz MD January 20, 2017 09:26
[2017-01-20] MEDS ORDERED: SODIUM CHLORIDE 0.9% FLUSH 10 ML FLUSH IVF PRN (09:30)
[2017-01-20 09:37] LABS: AUTOMATED NEUTROPHIL # 4.5 TH/MM3 (1.8-7.7); BASOPHIL % 0.8 % (0.0-2.0); EOSINOPHIL # 0.2 TH/MM3 (0-0.4); EOSINOPHIL % 2.9 % (0.0-4.0); HEMATOCRIT 35.8 % (35.0-46.0); HEMO FLAGS DIFF FINAL; LYMPHOCYTE # 0.9 TH/MM3 (1.0-4.8); MEAN CELL VOLUME 86.4 FL (80.0-100.0); MEAN CORPUSCULAR HEMOGLOBIN 28.9 PG (27.0-34.0); MEAN CORPUSCULAR HGB CONC 33.4 % (32.0-36.0); NEUT % 72.3 % (16.0-70.0); PLATELET COUNT 210 TH/MM3 (150-450); RED BLOOD COUNT 4.14 MIL/MM3 (4.00-5.30); RED CELL DISTRIBUTION WIDTH 12.4 % (11.6-17.2); WHITE BLOOD COUNT 6.2 TH/MM3 (4.0-11.0)
--- NOTE | 2017-01-20 09:51 | RADHPO ---
EXAM DATE/TIME: 01/20/2017 09:37 [facility] COMPARISON: No previous studies available for comparison. INDICATIONS : Shortness of breath. MEDICAL HISTORY : None. SURGICAL HISTORY : None. ENCOUNTER: Initial ACUITY: 4 - 6 days PAIN SCORE: 0/10 LOCATION: Bilateral chest FINDINGS: A single view of the chest demonstrates the lungs to be symmetrically aerated without evidence of mas s, infiltrate or effusion. Calcified granulomas are seen in the left mid lung. The cardiomediastinal contours are unremarkable. Osseous structures are intact. CONCLUSION: Healed granulomatous disease. No evidence of acute process. Alpesh Bales MD on January 20, 2017 at 9:49 Board Certified Radiologist. This report was verified electronically.
[2017-01-20 09:53] LABS: APTT (PATIENT) 26.7 SEC (24.3-30.1); BICARBONATE 26.6 MEQ/L (21.0-32.0); PROTHROMBIN TIME - PATIENT 10.7 SEC (9.8-11.6)
[2017-01-20] MEDS ORDERED: IOHEXOL 350 MG/ML 10 ML VIAL (for RAD DIAG) IV ONE (10:29)
--- NOTE | 2017-01-20 10:47 | RADHPO ---
EXAM DATE/TIME: 01/20/2017 10:13 [facility] COMPARISON: No previous studies available for comparison. INDICATIONS : Right sided chest pain with inspiration and difficulty breathing for two days. Recent hip replacement one month ago. Evaluate for pulmonary embolism. IV CONTRAST: 65 cc Omnipaque 350 (iohexol) IV RADIATION DOSE: 17.61 CTDIvol (mGy) MEDICAL HISTORY : Hernia, hiatal. SURGICAL HISTORY : Tubal ligation. Orthopedic surgery. ENCOUNTER: Initial ACUITY: 2 days PAIN SCALE: 5/10 LOCATION: Right chest TECHNIQUE: Volumetric scanning of the chest was performed using a pulmonary embolism protocol MIP images were re constructed. Using automated exposure control and adjustment of the mA and/or kV according to patien t size, radiation dose was kept as low as reasonably achievable to obtain optimal diagnostic quality images. FINDINGS: PULMONARY ARTERIES: There are extensive filling defects seen in the pulmonary arteries including a saddle embolus extendi ng into the upper lobe and lower lobe branches. LUNGS: There is no consolidation or pneumothorax . No concerning pulmonary nodule is visualized. Minimal sc arring right lower lobe. PLEURAE: There is no pleural thickening or pleural effusion. MEDIASTINUM: There is good visualization of the great vessels of the middle mediastinum. No evidence of mediastin al or hilar adenopathy/mass. Coronary artery calcifications. MUSCULOSKELETAL: Within normal limits for patient age. MISCELLANEOUS: The visualized upper abdominal organs demonstrate no acute abnormality. Hepatic low-densities. Gastri c diverticulum. CONCLUSION: 1. Extensive bilateral pulmonary emboli. 2. 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 Jorge Conroy MD on January 20, 2017 at 10:42 Board Certified Radiologist. This report was verified electronically.
--- NOTE | 2017-01-20 11:11 | EKG ---
Date Performed: 01/20/2017 Time Performed: 09:01:58 PTAGE: 76 years EKG: Sinus rhythm rSr'(V1) - probable normal variant Anterior T wave changes are nonspecific Borderline ECG PREVIOUS TRACING : 12/13/2016 09.15 DOCTOR: Anthony Schneider Interpretating Date/Time 01/20/2017 11:10:51
[2017-01-20] MEDS ORDERED: HEPARIN SODIUM - IV 10,000 UNITS/10 ML VIAL IV ONE (11:15)
[2017-01-20] MEDS: HEPARIN-D5W INJ 250 ML IV SCH ×2 (11:52→22:49)
[2017-01-20] MEDS ORDERED: SODIUM CHLORIDE 0.9% FLUSH 10 ML FLUSH IV FLUSH PRN (12:15)
--- NOTE | 2017-01-20 15:27 | HHI.HP ---
cc: Deyanira Sorto MD [facility] Service [facility] Primary Care Physician Deyanira Sorto MD Admission Diagnosis bilateral PE Diagnoses: Chief Complaint: sob, chest pain Travel History International Travel<30 Days: No Contact w/Intl Traveler <30 Da: No Traveled to Known Affected Are: No History of Present Illness This is a 76-year-old female with past medical history significant for arthritis and recent right total hip replacement who has been discharged on on Xarelto which the patient states stopped taking after 2 weeks when she was supposed to be taking them for at least a month. The patient presented with worsening shortness of breath, chest pain localized on the anterior chest right below the breasts on bilateral sides which today's radiating up to the anterior chest, rated as 6-7/10 intensity, no clear alleviating factors, taking deep breaths makes the pain worst. The patient denies having fevers or chills, cough, abdominal pain, dysuria. The patient states that she had diarrhea recently which lasted 5 days and resolved in the past couple days. Patient states diarrhea has resolved after she took Imodium. Review of Systems As per history of present illness, other systems reviewed by me and negative Past Family Social History Past Medical History Osteoarthritis Past Surgical History 1. Left total hip replacement. 2. Recent right total hip replacement Reported Medications None Allergies: Coded Allergies: No Known Allergies (Unverified , 01/20/17) Active Ordered Medications Current Medications Medications (Trade) Dose Ordered Sig/Tim Route Start Time Stop Time Status Last Admin (NS Flush) 2 ml UNSCH PRN IVF 01/20/17 09:30 (Heparin Inj) 5,000 units UNSCH PRN IV 01/20/17 17:15 Heparin Sodium (Porcine) 2500 units 2,500 units UNSCH PRN IV 01/20/17 17:15 Heparin Sodium/ Dextrose 250 ml @ 0 mls/hr TITRATE IV 01/20/17 11:15 01/20/17 11:52 (NS 1000 ml Inj) 1,000 ml @ 75 mls/hr [id number] IV 01/20/17 12:13 (NS Flush) 2 ml UNSCH PRN IV FLUSH 01/20/17 12:15 (NS Flush) 2 ml BID IV FLUSH 01/20/17 21:00 Family History Denies family history of clotting disorder. Patient states her brother from lung and bone cancer. Social History The patient denies current smoking. She quit 16 years ago. The patient drinks alcohol occasionally. Denies illicit drug use. The patient is , lives with her and has 2 daughters which lives in [place]. Physical Exam Vital Signs Vital Signs Date Time Temp Pulse Resp B/P Pulse Ox O2 Delivery O2 Flow Rate FiO2 01/20/17 14:51 95 Nasal Cannula 2.00 01/20/17 12:00 97.8 88 20 123/69 99 01/20/17 11:43 77 18 117/64 98 Nasal Cannula 2 01/20/17 10:14 20 97 Nasal Cannula 2 01/20/17 10:13 78 20 117/60 97 Nasal Cannula 2 01/20/17 09:16 97 Nasal Cannula 2 01/20/17 09:08 94 01/20/17 09:04 97.8 88 20 155/61 95 Physical Exam GENERAL: This is a well-nourished, well-developed patient, in mild distress due to pain. SKIN: No rashes, ecchymoses or lesions. Cool and dry. HEAD: Atraumatic. Normocephalic. No temporal or scalp tenderness. EYES: Pupils equal round and reactive. Extraocular motions intact. No scleral icterus. No injection or drainage. ENT: Nose without bleeding, purulent drainage or septal hematoma. Throat without erythema, tonsillar hypertrophy or exudate. Uvula midline. Airway patent. NECK: Trachea midline. No JVD or lymphadenopathy. Supple, nontender, no meningeal signs. CARDIOVASCULAR: Regular rate and rhythm without murmurs, gallops, or rubs. RESPIRATORY: Clear to auscultation. Breath sounds equal bilaterally. No wheezes , rales, or rhonchi. GASTROINTESTINAL: Abdomen soft, non-tender, nondistended. No hepato-splenomegaly , or palpable masses. No guarding. MUSCULOSKELETAL: Extremities without clubbing, cyanosis, or edema. There is some right hip pain, no effusion, or edema noted. No calf tenderness. Negative Homans sign bilaterally. NEUROLOGICAL: Awake and alert. Cranial nerves II through XII intact. Motor and sensory grossly within normal limits. Five out of 5 muscle strength in all muscle groups. Normal speech. Laboratory Laboratory Tests Test 01/20/17 09:25 White Blood Count 6.2 Red Blood Count 4.14 Hemoglobin 12.0 Hematocrit 35.8 Mean Corpuscular Volume 86.4 Mean Corpuscular Hemoglobin 28.9 Mean Corpuscular Hemoglobin 33.4 Concent Red Cell Distribution Width 12.4 Platelet Count 210 Mean Platelet Volume 8.0 Neutrophils (%) (Auto) 72.3 Lymphocytes (%) (Auto) 14.0 Monocytes (%) (Auto) 10.0 Eosinophils (%) (Auto) 2.9 Basophils (%) (Auto) 0.8 Neutrophils # (Auto) 4.5 Lymphocytes # (Auto) 0.9 Monocytes # (Auto) 0.6 Eosinophils # (Auto) 0.2 Basophils # (Auto) 0.0 CBC Comment DIFF FINAL Differential Comment Prothrombin Time 10.7 Prothromb Time International 1.0 Ratio Activated Partial 26.7 Thromboplast Time Sodium Level 140 Potassium Level 4.0 Chloride Level 104 Carbon Dioxide Level 26.6 Anion Gap 9 Blood Urea Nitrogen 11 Creatinine 0.81 Estimat Glomerular Filtration 69 Rate Random Glucose 92 Calcium Level 9.6 Result Diagram: 01/20/1792401/20/17924 Imaging Last Impressions Chest X-Ray 01/20/17921 Signed Impressions: Service Date/Time: Friday, January 20, 2017 09:37 - CONCLUSION: Healed granulomatous disease. No evidence of acute process. Alpesh Bales MD CT Angiography 01/20/17 0000 Signed Impressions: Service Date/Time: Friday, January 20, 2017 10:13 - CONCLUSION: 1. Extensive bilateral pulmonary emboli. 2. 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 Jorge Conroy MD Both images reviewed by me. Assessment and Plan Problem List: (1) Bilateral pulmonary embolism ICD Code: I26.99 Status: Acute Plan: Admit the patient to the intensive care unit to be closely monitored. Monitor on telemetry Continue IV heparin drip for now Place on IV fluids Order 2D echocardiogram Consult pulmonology If the patient has hemodynamic instability consult critical care and consider TPA administration. (2) Status post total hip replacement, right ICD Code: Z96.641 Status: Acute Plan: PT evaluation after the patient is more stable. For now keep the patient on bedrest. Assessment and Plan DVT prophylaxis: On heparin drip. 40 minutes of critical care time spent on patient care. Code Status Full code Discussed Condition With Patient, ED physician. Physician Certification 2 Midnight Certification Type: Admission for Inpatient Services Order for Inpatient Services The services are ordered in accordance with Medicare regulations or non- Medicare payer requirements, as applicable. In the case of services not specified as inpatient-only, they are appropriately provided as inpatient services in accordance with the 2-midnight benchmark. Estimated LOS (days): 2 days is the estimated time the patient will need to remain in the hospital, assuming treatment plan goals are met and no additional complications. Post-Hospital Plan: Not yet determined Dawson Reese MD January 20, 2017 15:27
[2017-01-20] MEDS: SODIUM CHLOR 0.9% 1000 ML INJ 1,000 ML IV SCH (16:14)
[2017-01-20] MEDS ORDERED: HEPARIN SODIUM - IV 10,000 UNITS/10 ML VIAL IV PRN ×2 (17:15)
[2017-01-20] MEDS ORDERED: RESP: ALBUTEROL 2.5 MG/3 ML NEB (PRN) NEB (18:30)
[2017-01-20] MEDS: SODIUM CHLORIDE 0.9% FLUSH 10 ML FLUSH IV FLUSH SCH (20:56)
[2017-01-20] MEDS ORDERED: CHLORHEXIDINE GLUCONATE 2 % 1 PACK (2 CLOTHS)(extra cloths) TOPICAL PRN (21:15)
[2017-01-20 21:41] LABS: BLOOD, URINE TRACE (NEG); GLUCOSE,URINE NEG (NEG); KETONE, URINE NEG (NEG); NITRITE,URINE NEG (NEG)
[2017-01-20 21:54] LABS: URINE COLOR YELLOW (YELLW/STRAW)
[2017-01-20 21:55] LABS: COMMENT (UR) CULT NOT INDICATED; CULTURE IF INDICATED CULT NOT INDICATED; SQUAMOUS EPITHELIAL CELL URINE 0-5 /hpf (0-5)
[2017-01-21] VITALS (31 sets, daily range): BP systolic 113–146; BP diastolic 46–69; PULSE 73–90; RESP 18–33; TEMP 98.1–98.8; O2SAT 92–99
[2017-01-21] MEDS: SODIUM CHLOR 0.9% 1000 ML INJ 1,000 ML IV SCH ×3 (00:18→18:53)
[2017-01-21 00:42] LABS: APTT (PATIENT) 74.9 SEC (24.3-30.1)
[2017-01-21] MEDS: CHLORHEXIDINE GLUCONATE 2 % 1 PACK (2 CLOTHS)(taper/protocol) TOPICAL SCH (04:00)
[2017-01-21 05:21] LABS: CHLORIDE 106 MEQ/L (98-107); POTASSIUM 3.8 MEQ/L (3.5-5.1); SODIUM (NA) 142 MEQ/L (136-145)
[2017-01-21 06:09] LABS: ALKALINE PHOSPHATASE 87 U/L (45-117); ALT (GPT) 18 U/L (10-53); ANION GAP 10 MEQ/L (5-15); AST (GOT) 13 U/L (15-37); BICARBONATE 25.8 MEQ/L (21.0-32.0); BLOOD UREA NITROGEN 11 MG/DL (7-18); GLOMERULAR FILTRATION RATE 97 ML/MIN (>89); TOTAL BILIRUBIN ADULT 0.5 MG/DL (0.2-1.0)
--- NOTE | 2017-01-21 06:38 | MB ---
cc: JONAH MARTINEZ DATE OF CONSULTATION 01/20/2017 REASON FOR CONSULTATION Pulmonary emboli and hypoxia. HISTORY OF PRESENT ILLNESS This is a 76-year-old lady with a history of right total hip replacement approximately four weeks ago, was sent home on 01/06 and has been on Xarelto orally. The patient apparently stopped taking the Xarelto and started with aspirin at home and noticed some increasing shortness of breath and pain on taking deep breaths. The patient denied any leg swelling but had trouble ambulating and denied any nausea, vomiting or hemoptysis. She then came to the emergency room for evaluation and was complaining of mid-chest pain radiating into the neck and worsening dyspnea and thus a CT of the chest was done which demonstrated bilateral pulmonary emboli. She has now been started on IV heparin and admitted. She is on oxygen at 2 liters and her O2 sats are 96%. PAST HISTORY 1. History of left total hip replacement. 2. History of arthritis. No history of chronic lung disease. HABITS The patient smoked one pack per day for about 25 years and then quit. No significant alcohol use. ALLERGIES None listed. FAMILY HISTORY One brother of lung cancer. Mother at an elderly age. Father of heart disease. SYSTEMS REVIEW The patient denies recent weight loss. She does have arthritis, hip pain. Denies abdominal pains, nausea. No urinary symptoms. She has no leg or calf muscle pains. She has no skin lesions. The other system review is unremarkable, negative. ALLERGIES No drug allergies are listed. PHYSICAL EXAMINATION GENERAL: This is averagely built elderly white female, pale and in no acute distress. VITAL SIGNS: Blood pressure is 120/60, pulse is 85, respirations 20, temperature 97.6. HEENT: Head is normocephalic. Pupils are reactive. Tongue moist. Throat is clear. Nasal mucosa clear. NECK: Supple. No bruits, no thyroid enlargement or lymphadenopathy. CHEST: Equal movements with decreased excursions. Breath sounds diminished at the periphery with occasional wheezes bilaterally. HEART: The heart sounds are regular, S1-S2. No murmur. No S3. ABDOMEN: Soft, protuberant. No organomegaly or tenderness. Bowel sounds are active. EXTREMITIES: Movements of the right hip are restricted. There is minimal edema of the extremities. No calf tenderness on either side. NEUROLOGIC: Reflexes are 1+ with no gross motor deficits. Cranial nerves grossly intact. RECTAL: Exam is deferred. SKIN: No lesions. IMPRESSION 1. Bilateral pulmonary emboli with hypoxemia. 2. History of right hip replacement. 3. Degenerative arthritis. 4. Possible DVT right leg. PLAN 1. The patient has been placed on IV heparin drip which we will continue and switch over to oral Eliquis or Xarelto in four days. 2. Nebulized albuterol solution added q.6 hours p.r.n. 3. Oxygen supplementation at 2 liters. 4. Doppler study of the leg veins to evaluate for clots and the patient will be kept on bedrest for now. 5. CBC and coags to be ordered in the a.m. as well. Thank you Dr. Goldman for this consultation. MD ELIZABETH Romero/CRISTIAN /6:37 PM /6:25 AM
[2017-01-21 07:25] LABS: APTT (PATIENT) 80.8 SEC (24.3-30.1)
[2017-01-21] MEDS: SODIUM CHLORIDE 0.9% FLUSH 10 ML FLUSH IV FLUSH SCH ×2 (08:35→21:00)
--- NOTE | 2017-01-21 09:03 | RADHPO ---
EXAM DATE/TIME: 01/21/2017 08:27 [place] COMPARISON: No previous studies available for comparison. INDICATIONS : Bilateral leg swelling. Pulmonary embolism. Post right hip replacement one month ago. Stopped anti coagulants after two weeks. MEDICAL HISTORY : Hypercholesterolemia. Arthritis. Osteoarthritis. Hiatal hernia. SURGICAL HISTORY : Tubal ligation. Bilateral hip replacements. ENCOUNTER: Initial ACUITY: 1 day PAIN SCORE: 0/10 LOCATION: Bilateral leg. TECHNIQUE: Venous ultrasound of the left and right leg was performed from the inguinal ligament to the proximal calf. Real-time, color Doppler and spectral tracing, compression and augmentation techniques were us ed. FINDINGS: RIGHT LEG: There is normal compressibility of the deep venous system from the inguinal region to the proximal ca lf. No echogenic clot is seen in the lumen of the common femoral, femoral, popliteal, and posterior tibial veins. There is a normal response of the venous system to proximal and distal augmentation an d respiration. LEFT LEG: There is normal compressibility of the deep venous system from the inguinal region to the proximal ca lf. No echogenic clot is seen in the lumen of the common femoral, femoral, popliteal, and posterior tibial veins. There is a normal response of the venous system to proximal and distal augmentation an d respiration. CONCLUSION: No DVT in either lower extremity. Jorge Conroy MD on January 21, 2017 at 9:00 Board Certified Radiologist. This report was verified electronically.
--- NOTE | 2017-01-21 12:00 | HHI.PR ---
Subjective Remarks Patient complains of pleuritic chest pain upon deep breathing. Denies shortness of breath, palpitations Denies dizziness Vital signs stable with good oxygen saturation of 96% on 2 L nasal cannula. Objective Vitals Vital Signs Date Time Temp Pulse Resp B/P Pulse Ox O2 Delivery O2 Flow Rate FiO2 01/21/17 11:00 74 22 122/63 01/21/17 10:00 76 18 118/64 01/21/17 10:00 73 01/21/17 09:00 76 19 125/51 01/21/17 08:00 98.1 80 26 113/63 01/21/17 08:00 80 01/21/17 07:45 96 Nasal Cannula 2.00 01/21/17 07:00 76 24 96 01/21/17 06:01 90 33 142/64 95 01/21/17 06:00 84 01/21/17 05:01 78 20 131/54 96 01/21/17 04:35 98.5 78 127/58 96 01/21/17 04:00 76 01/21/17 03:04 78 18 118/54 96 01/21/17 02:04 82 22 131/57 96 01/21/17 02:00 80 01/21/17 01:04 80 20 125/60 96 01/21/17 00:00 98.8 80 21 99 01/21/17 00:00 80 01/20/17 23:00 76 21 97 01/20/17 22:00 80 01/20/17 22:00 80 21 97 01/20/17 21:06 84 22 110/46 96 01/20/17 20:00 86 01/20/17 20:00 98.3 86 22 110/65 96 01/20/17 19:29 96 Nasal Cannula 2.00 01/20/17 19:00 86 24 120/54 96 01/20/17 18:45 90 28 96 01/20/17 18:25 99.5 84 18 103/56 97 01/20/17 18:15 82 25 97 01/20/17 17:47 88 17 138/60 01/20/17 14:51 95 Nasal Cannula 2.00 01/20/17 12:00 97.8 88 20 123/69 99 I/O 01/20/17 01/20/17 01/20/17 01/21/17 01/21/17 5/9/17 07:00 15:00 23:00 07:00 15:00 23:00 Intake Total 1021 ml 568 ml Output Total 200 ml Balance 1021 ml 368 ml Intake Oral 480 ml IV Total 541 ml 568 ml Output Urine Total 200 ml # Voids 3 Result Diagram: 01/20/17 0925 01/21/17 0423 Imaging Last Impressions Lower Extremity Ultrasound 01/21/17 0000 Signed Impressions: Service Date/Time: Saturday, January 21, 2017 08:27 - CONCLUSION: No DVT in either lower extremity. Jorge Conroy MD Chest X-Ray 01/20/17921 Signed Impressions: Service Date/Time: Friday, January 20, 2017 09:37 - CONCLUSION: Healed granulomatous disease. No evidence of acute process. Alpesh Bales MD CT Angiography 01/20/17 0000 Signed Impressions: Service Date/Time: Friday, January 20, 2017 10:13 - CONCLUSION: 1. Extensive bilateral pulmonary emboli. 2. 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 Jorge Conroy MD Objective Remarks GENERAL: This is a well-nourished, well-developed patient, in nad. SKIN: No rashes, ecchymoses or lesions. Cool and dry. HEAD: Atraumatic. Normocephalic. No temporal or scalp tenderness. EYES: Pupils equal round and reactive. Extraocular motions intact. No scleral icterus. No injection or drainage. ENT: Nose without bleeding, purulent drainage or septal hematoma. Throat without erythema, tonsillar hypertrophy or exudate. Uvula midline. Airway patent. NECK: Trachea midline. No JVD or lymphadenopathy. Supple, nontender, no meningeal signs. CARDIOVASCULAR: Regular rate and rhythm without murmurs, gallops, or rubs. RESPIRATORY: Clear to auscultation. Breath sounds equal bilaterally. No wheezes , rales, or rhonchi. GASTROINTESTINAL: Abdomen soft, non-tender, nondistended. No hepato-splenomegaly , or palpable masses. No guarding. MUSCULOSKELETAL: Extremities without clubbing, cyanosis, or edema. There is some right hip pain, no effusion, or edema noted. No calf tenderness. Negative Homans sign bilaterally. NEUROLOGICAL: Awake and alert. Cranial nerves II through XII intact. Motor and sensory grossly within normal limits. Five out of 5 muscle strength in all muscle groups. Normal speech. Procedures None Medications and IVs Current Medications Medications (Trade) Dose Ordered Sig/Tim Route Start Time Stop Time Status Last Admin (Heparin Inj) 5,000 units UNSCH PRN IV 01/20/17 17:15 Heparin Sodium (Porcine) 2500 units 2,500 units UNSCH PRN IV 01/20/17 17:15 Heparin Sodium/ Dextrose 250 ml @ 0 mls/hr TITRATE IV 01/20/17 11:15 01/20/17 22:49 (NS 1000 ml Inj) 1,000 ml @ 75 mls/hr [id number] IV 01/20/17 12:13 01/21/17 00:18 (NS Flush) 2 ml UNSCH PRN IV FLUSH 01/20/17 12:15 (NS Flush) 2 ml BID IV FLUSH 01/20/17 21:00 01/21/17 08:35 (Tylenol) 650 mg Q4H PRN PO 01/20/17 17:00 Miscellaneous Information Patient in critical care unit? Ass... [id number] .XX 01/20/17 22:00 (Chlorhexidine 2% Cloth) 3 pack DAILY@04 TOPICAL 01/21/17 04:00 01/25/17 04:01 01/21/17 04:00 (Chlorhexidine 2% Cloth) 3 pack UNSCH PRN TOPICAL 01/20/17 21:15 01/25/17 21:09 Urinary Catheter: No Vascular Central Line Catheter: No A/P Problem List: (1) Bilateral pulmonary embolism ICD Code: I26.99 Status: Acute Plan: The patient was admitted to intensive care unit for close monitoring given that she had bilateral PE which carries a high mortality rate Continue to monitor the patient on telemetry, continue apparent drip for now, continue IV fluids To the echocardiogram ordered and pending. Appreciate pulmonology recommendations I plan to transition the patient to Xarelto within the next 1-2 days if remains hemodynamically stable. (2) Status post total hip replacement, right ICD Code: Z96.641 Status: Acute Plan: PT evaluation after the patient is more stable. Continue bedrest for now. Assessment and Plan DVT prophylaxis: On heparin drip. Discharge Planning Tinea to monitor in the ICU for today, if stable transfer to the floor in a.m., possible discharge in 1-2 days if stable. Dawson Reese MD January 21, 2017 12:00
--- NOTE | 2017-01-21 15:20 | EC ---
Study Study Date:01/21/2017 STUDY CONCLUSIONS SUMMARY - Left ventricle: The cavity size was normal. Wall thickness was normal. Systolic function was normal. The estimated ejection fraction was in the range of 55% to 60%. Wall motion was normal; there were no regional wall motion abnormalities. - Pulmonary arteries: PA peak pressure: 34mm Hg (S). If LV function is below 40, please consider prescribing an ACEI or ARB or document rationale for non-use. PROCEDURE DATA STUDY STATUS: Elective. Procedure: Transthoracic echocardiography. Image quality was good. Scanning was performed from the parasternal, apical, and subcostal acoustic windows. Study completion: The patient tolerated the procedure well. Transthoracic echocardiography. M-mode, complete 2D, complete spectral Doppler, and color Doppler. Patient status: Inpatient. CARDIAC ANATOMY LEFT VENTRICLE: The cavity size was normal. Wall thickness was normal. Systolic function was normal. The estimated ejection fraction was in the range of 55% to 60%. Wall motion was normal; there were no regional wall motion abnormalities. AORTIC VALVE: Trileaflet; normal thickness leaflets. Doppler: Transvalvular velocity was within the normal range. There was no stenosis. No regurgitation. AORTA: Aortic root: The aortic root was normal in size. MITRAL VALVE: Structurally normal valve. Doppler: Transvalvular velocity was within the normal range. There was no evidence for stenosis. No regurgitation. Peak gradient: 3mm Hg (D). LEFT ATRIUM: The atrium was normal in size. RIGHT VENTRICLE: The cavity size was normal. Wall thickness was normal. PULMONIC VALVE: Doppler: Transvalvular velocity was within the normal range. There was no evidence for stenosis. No regurgitation. TRICUSPID VALVE: Structurally normal valve. Doppler: Transvalvular velocity was within the normal range. No regurgitation. PULMONARY ARTERY: The main pulmonary artery was normal-sized. Systolic pressure was within the normal range. RIGHT ATRIUM: The atrium was normal in size. PERICARDIUM: There was no pericardial effusion. SYSTEMIC VEINS: Inferior vena cava: The vessel was normal in size. BASIC MEASUREMENTS ADULT Normal Left ventricle LV internal dimension, ED, chordal level, *39.5 mm 43-52 PLAX LV internal dimension, ES, chordal level, 28.1 mm 23-38 PLAX Fractional shortening, chordal level, PLAX *29 % >29 LV posterior wall thickness, ED 8.14 mm IVS/LVPW ratio, ED 1.27 <1.3 Ventricular septum Septal thickness, ED 10.3 mm Aortic valve Leaflet separation 18 mm 15-26 Right ventricle RV internal dimension, ED, PLAX 30.5 mm 19-38 BASIC MEASUREMENTS ADULT Normal Aortic valve Leaflet separation 18 mm 15-26 Aorta Root diameter, ED 28 mm 20-37 Left atrium Anterior-posterior dimension, ES 39 mm 19-40 LA/aortic root ratio 1.39 DOPPLER MEASUREMENTS ADULT Normal Main pulmonary artery Pressure, S *34 mm Hg =30 Mitral valve Peak E-wave velocity 88.4 cm/s Peak A-wave velocity 124 cm/s Peak gradient, D 3 mm Hg Peak E/A ratio 0.7 Tricuspid valve Regurgitant peak velocity 246 cm/s Peak RV-RA gradient, S 24 mm Hg Maximal regurgitant velocity 246 cm/s Systemic veins Estimated CVP 10 mm Hg Right ventricle RV pressure, S *34 mm Hg <30 LEGEND: Mean values are shown as u=mean value. Asterisk (*) nathan values outside specified normal range. Prepared and signed by Marilee Saucedo [id number]
[2017-01-21 15:22] LABS: APTT (PATIENT) 59.3 SEC (24.3-30.1)
[2017-01-21] MEDS: HEPARIN-D5W INJ 250 ML IV SCH (18:52)
--- NOTE | 2017-01-21 19:36 | HHI.PR ---
Subjective Remarks Feels better. On Heparin IV. O2 sat 96 on 2L No SOB at rest. Chest pain is better Objective Vital Signs Date Time Temp Pulse Resp B/P Pulse Ox O2 Delivery O2 Flow Rate FiO2 01/21/17 18:00 76 01/21/17 18:00 76 25 125/63 01/21/17 17:00 80 21 124/48 01/21/17 16:00 78 01/21/17 16:00 98.4 76 22 130/69 01/21/17 15:00 78 24 119/46 01/21/17 14:00 80 01/21/17 14:00 78 22 114/48 01/21/17 13:00 78 22 130/68 01/21/17 12:00 76 01/21/17 12:00 98.6 76 24 135/64 01/21/17 11:00 74 22 122/63 01/21/17 10:00 76 18 118/64 01/21/17 10:00 73 01/21/17 09:00 76 19 125/51 01/21/17 08:00 98.1 80 26 113/63 01/21/17 08:00 80 01/21/17 07:45 96 Nasal Cannula 2.00 01/21/17 07:00 76 24 96 01/21/17 06:01 90 33 142/64 95 01/21/17 06:00 84 01/21/17 05:01 78 20 131/54 96 01/21/17 04:35 98.5 78 127/58 96 01/21/17 04:00 76 01/21/17 03:04 78 18 118/54 96 01/21/17 02:04 82 22 131/57 96 01/21/17 02:00 80 01/21/17 01:04 80 20 125/60 96 01/21/17 00:00 98.8 80 21 99 01/21/17 00:00 80 01/20/17 23:00 76 21 97 01/20/17 22:00 80 01/20/17 22:00 80 21 97 01/20/17 21:06 84 22 110/46 96 01/20/17 20:00 86 01/20/17 20:00 98.3 86 22 110/65 96 I/O 01/20/17 01/20/17 01/20/17 01/21/1717 5/9/17 07:00 15:00 23:00 07:00 15:00 23:00 Intake Total 1021 ml 568 ml 1840 ml Output Total 200 ml 600 ml Balance 1021 ml 368 ml 1240 ml Intake Oral 480 ml 750 ml IV Total 541 ml 568 ml 1090 ml Output Urine Total 200 ml 600 ml # Voids 3 3 Result Diagram: 01/20/17 0925 01/21/17 0423 Objective Remarks GENERAL: This is averagely built elderly white female, pale and in no acute distress. HEENT: Head is normocephalic. Pupils are reactive. Tongue moist. Throat is clear. Nasal mucosa clear. NECK: Supple. No bruits, no thyroid enlargement or lymphadenopathy. CHEST: Equal movements with decreased excursions. Breath sounds diminished at the periphery. HEART: The heart sounds are regular, S1-S2. No murmur. No S3. ABDOMEN: Soft, protuberant. No organomegaly or tenderness. Bowel sounds are active. EXTREMITIES: Movements of the right hip are restricted. There is minimal edema of the extremities. No calf tenderness on either side. NEUROLOGIC: Reflexes are 1+ with no gross motor deficits. Cranial nerves grossly intact. RECTAL: Exam is deferred. SKIN: No lesions. Assessment and Plan Assessment and Plan IMPRESSION 1. Bilateral pulmonary emboli with hypoxemia. 2. History of right hip replacement. 3. Degenerative arthritis. 4. Possible DVT right leg. Plan : 1. Continue Heparin Drip. 2. Wean o2 to RA. 3. Nebs tid prn , Albuterol. 4 CBC,BMP in am. 5. Switch to Xarelto /Eliquis in 3 days. 6. Transfer to [facility]. Chloe Carmona MD January 21, 2017 19:36
[2017-01-21 21:30] LABS: APTT (PATIENT) 49.3 SEC (24.3-30.1)
[2017-01-22] VITALS (36 sets, daily range): BP systolic 110–150; BP diastolic 53–75; PULSE 72–98; RESP 17–44; TEMP 97.7–98.9; O2SAT 92–97
[2017-01-22] MEDS: CHLORHEXIDINE GLUCONATE 2 % 1 PACK (2 CLOTHS)(taper/protocol) TOPICAL SCH (04:00)
[2017-01-22 05:30] LABS: POTASSIUM 3.7 MEQ/L (3.5-5.1)
[2017-01-22 06:16] LABS: HEMATOCRIT 32.1 % (35.0-46.0); MEAN CELL VOLUME 86.6 FL (80.0-100.0); MEAN CORPUSCULAR HEMOGLOBIN 28.5 PG (27.0-34.0); MEAN CORPUSCULAR HGB CONC 32.8 % (32.0-36.0); RED BLOOD COUNT 3.71 MIL/MM3 (4.00-5.30); RED CELL DISTRIBUTION WIDTH 12.1 % (11.6-17.2); WHITE BLOOD COUNT 3.6 TH/MM3 (4.0-11.0)
[2017-01-22 06:45] LABS: REVIEW FLAG FINAL
[2017-01-22 06:46] LABS: PLATELET COUNT 25 TH/MM3 (150-450)
[2017-01-22 06:50] LABS: APTT (PATIENT) 57.5 SEC (24.3-30.1)
[2017-01-22 06:53] LABS: BICARBONATE 27.5 MEQ/L (21.0-32.0)
[2017-01-22] MEDS: SODIUM CHLORIDE 0.9% FLUSH 10 ML FLUSH IV FLUSH SCH ×2 (09:00→21:55)
[2017-01-22] MEDS ORDERED: MISCELLANEOUS PHARMACY INFORMATION XX ONE (10:15)
[2017-01-22 11:10] LABS: MEAN CELL VOLUME 86.3 FL (80.0-100.0); MEAN CORPUSCULAR HEMOGLOBIN 28.5 PG (27.0-34.0); PLATELET COUNT 26 TH/MM3 (150-450); WHITE BLOOD COUNT 3.3 TH/MM3 (4.0-11.0)
[2017-01-22 11:19] LABS: REVIEW FLAG FINAL
[2017-01-22] MEDS: SODIUM CHLOR 0.9% IV SCH (11:27)
[2017-01-22] MEDS: ARGATROBAN IV SCH (11:27)
[2017-01-22 12:55] LABS: APTT (PATIENT) 25.3 SEC (24.3-30.1)
[2017-01-22 16:12] LABS: APTT (PATIENT) 43.9 SEC (24.3-30.1)
--- NOTE | 2017-01-22 17:56 | HHI.PR ---
Subjective Remarks Feels better. Off Heparin IV. O2 sat 96 on RA No SOB at rest. Platelets dropped <[id number] Objective Vital Signs Date Time Temp Pulse Resp B/P Pulse Ox O2 Delivery O2 Flow Rate FiO2 01/22/17 16:00 76 01/22/17 16:00 82 23 01/22/17 15:00 88 28 01/22/17 14:12 84 26 110/75 01/22/17 14:00 78 01/22/17 13:01 76 44 135/71 01/22/17 12:01 78 20 129/65 01/22/17 12:00 79 01/22/17 11:01 78 24 127/65 01/22/17 10:01 72 19 110/58 01/22/17 10:00 73 01/22/17 09:01 80 23 134/59 01/22/17 08:07 76 22 148/64 01/22/17 08:01 98.0 74 20 150/61 01/22/17 08:00 75 01/22/17 07:01 78 24 149/57 01/22/17 06:03 76 01/22/17 06:00 84 19 141/63 01/22/17 05:01 78 17 124/57 01/22/17 04:01 97.7 78 18 144/61 97 01/22/17 04:00 85 01/22/17 03:01 80 17 145/61 01/22/17 02:01 78 19 136/66 01/22/17 02:00 80 01/22/17 01:01 74 19 131/63 01/22/17 00:01 98.9 76 19 120/53 92 01/22/17 00:00 76 01/21/17 23:01 80 19 146/63 01/21/17 22:01 78 19 136/64 01/21/17 22:00 78 01/21/17 21:29 84 26 140/64 93 01/21/17 20:01 98.6 86 24 137/66 92 01/21/17 20:00 86 01/21/17 19:52 93 21 01/21/17 19:01 80 24 119/68 95 01/21/17 18:00 76 01/21/17 18:00 76 25 125/63 I/O 5/9/17 5/9/17 01/21/17 01/22/17 01/22/17 01/22/17 07:00 15:00 23:00 07:00 15:00 23:00 Intake Total 568 ml 1840 ml 1000 ml 700 ml 480 ml Output Total 200 ml 600 ml 650 ml 1200 ml Balance 368 ml 1240 ml 350 ml -500 ml 480 ml Intake Oral 750 ml 400 ml 100 ml 480 ml IV Total 568 ml 1090 ml 600 ml 600 ml Output Urine Total 200 ml 600 ml 650 ml 1200 ml # Voids 3 2 1 3 # Bowel Movements 0 0 Result Diagram: 01/22/17 1050 01/22/17 0433 Objective Remarks GENERAL: This is averagely built elderly white female, pale and in no acute distress. HEENT: Head is normocephalic. Pupils are reactive. Tongue moist. Throat is clear. Nasal mucosa clear. NECK: Supple. No bruits, no thyroid enlargement or lymphadenopathy. CHEST: Equal movements with decreased excursions. Breath sounds diminished at the periphery. HEART: The heart sounds are regular, S1-S2. No murmur. No S3. ABDOMEN: Soft, protuberant. No organomegaly or tenderness. Bowel sounds are active. EXTREMITIES: Movements of the right hip are restricted. There is minimal edema of the extremities. No calf tenderness on either side. NEUROLOGIC: Reflexes are 1+ with no gross motor deficits. Cranial nerves grossly intact. RECTAL: Exam is deferred. SKIN: No lesions. Assessment and Plan Assessment and Plan IMPRESSION 1. Bilateral pulmonary emboli with hypoxemia. 2. History of right hip replacement. 3. Degenerative arthritis. 4. Possible DVT right leg. 5. ROYAL Plan : 1. D/C Heparin 2. Wean o2 to RA. 3. Nebs tid prn , Albuterol. 4 Argatroban drip. and monitor platelets 5. Hematology consult [facility]. Chloe Carmona MD January 22, 2017 17:56
[2017-01-22 19:16] LABS: APTT (PATIENT) 50.7 SEC (24.3-30.1)
[2017-01-22] MEDS ORDERED: MAGNESIUM HYDROXIDE SUSP 30 ML CUP PO ONE (21:45)
[2017-01-23] VITALS (27 sets, daily range): BP systolic 112–158; BP diastolic 51–74; PULSE 72–94; RESP 16–59; TEMP 98–98.6; O2SAT 93–95
[2017-01-23] MEDS: CHLORHEXIDINE GLUCONATE 2 % 1 PACK (2 CLOTHS)(taper/protocol) TOPICAL SCH ×2 (04:00→20:30)
[2017-01-23 04:44] LABS: AUTOMATED NEUTROPHIL # 2.4 TH/MM3 (1.8-7.7); BASOPHIL % 0.7 % (0.0-2.0); EOSINOPHIL # 0.2 TH/MM3 (0-0.4); EOSINOPHIL % 4.8 % (0.0-4.0); HEMATOCRIT 31.4 % (35.0-46.0); LYMPH % 21.5 % (9.0-44.0); LYMPHOCYTE # 0.9 TH/MM3 (1.0-4.8); MEAN CELL VOLUME 86.1 FL (80.0-100.0); MEAN CORPUSCULAR HGB CONC 33.7 % (32.0-36.0); MONO % 11.7 % (0.0-8.0); NEUT % 61.3 % (16.0-70.0); PLATELET COUNT 35 TH/MM3 (150-450); RED BLOOD COUNT 3.65 MIL/MM3 (4.00-5.30); RED CELL DISTRIBUTION WIDTH 11.8 % (11.6-17.2)
[2017-01-23 04:45] LABS: HEMO FLAGS AUTO DIFF
[2017-01-23 05:04] LABS: APTT (PATIENT) 51.4 SEC (24.3-30.1)
[2017-01-23 05:15] LABS: PLATELET ESTIMATE SMEAR LOW (NORMAL); PLATELET MORPHOLOGY NORMAL (NORMAL); SCAN/DIFF AUTO DIFF CONFIRMED
[2017-01-23] MEDS: SODIUM CHLOR 0.9% IV SCH (07:00)
[2017-01-23] MEDS: ARGATROBAN IV SCH (07:00)
--- NOTE | 2017-01-23 08:48 | MB ---
cc: MARITO WALSH DATE OF CONSULTATION: 01/23/2017 1940 REASON FOR CONSULTATION Patient with acute thrombocytopenia and pulmonary embolism. HISTORY OF PRESENT ILLNESS This is a 76-year-old female who recently underwent right total hip replacement approximately 4 weeks ago. She was discharged home on prophylactic Xarelto. She stopped taking Xarelto abruptly. Subsequently she developed increasing shortness of breath and pleuritic chest pain. She was brought to the emergency department. She had a CT angiogram which revealed extensive bilateral pulmonary emboli. She also had Doppler ultrasound of the lower extremity which did not show any evidence of lower extremity DVT. On admission the patient was started on heparin but unfortunately she had an acute drop in her platelet count post heparin exposure. Again on admission, platelet count was 210 and dropped to 25,000 on 01/22. Heparin has been discontinued and the patient has been started on Argatroban drip. The patient has not had any bruising, any lower extremity swelling. She appears comfortable at this time. She denies any hemoptysis. She does have dyspnea and pleuritic chest pain. She is currently being monitored in the intensive care unit. The patient has no prior history of DVT or pulmonary embolism. REVIEW OF SYSTEMS A comprehensive 14-point review of systems was completed which is negative except as described in the HPI. PAST MEDICAL HISTORY 1. History of osteoarthritis. 2. History of bilateral hip replacement. MEDICATION Medications were reviewed in the EMR. FAMILY HISTORY Family history was reviewed. It is noncontributory to this admission. There is no family history of clotting disorder. She had a brother who from lung cancer. SOCIAL HISTORY She is an ex-smoker and quit 16 years ago. She occasionally drinks alcohol. No illicit drug use. She lives with her . She has two daughters that live in the area. PHYSICAL EXAMINATION VITAL SIGNS: Blood pressure is 137/62, pulse is in the 80s, temperature is 98.4, respiratory rate is 14, O2 sats are 93% on 2 liters nasal cannula. GENERAL: Well-developed, well-nourished elderly female in no apparent distress. HEENT: Pupils are equal, round, reactive to light. EOMI. No oral thrush. No oral lesions. NECK: Supple. No JVD or bruits. No lymphadenopathy. CHEST: Chest is clear to auscultation bilaterally. CARDIAC: S1-S2, regular rate and rhythm. ABDOMEN: Abdomen is soft, nontender, nondistended. Bowel sounds are present. EXTREMITIES: Without any edema, erythema or cyanosis. SKIN: Without any petechiae, lesion or bruises. NEURO: No focal deficits. PSYCHIATRIC: Mood and affect is appropriate. LABORATORY DATA WBCs 3.3, hemoglobin is 10.6, MCV 86.3, platelet count is 26,000. Serum chemistries show sodium 144, potassium 3.7, chloride 107, CO2 27.5, BUN 9, creatinine 0.58, GFR is 101, glucose is 107, calcium is 8.8. IMAGING STUDIES Reviewed in the EMR. ASSESSMENT/PLAN This is a 76-year-old female with a history of bilateral hip osteoarthritis, recently undergone right hip arthroplasty. She was brought to the emergency room with worsening dyspnea and pleuritic chest pain. A CTA revealed bilateral pulmonary emboli. The patient was started on heparin and subsequently developed acute severe thrombocytopenia. Hematology has been consulted to make further recommendations. 1. Acute thrombocytopenia. 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 She has had recent exposure to heparin within the last 30 days and when she was rechallenged with heparin she developed acute drop in her platelet count. HIT antibody panel has been ordered which is pending. I agree with treatment with argatroban given the fact that the patient has bilateral pulmonary emboli. If HIT antibody assay comes back positive we will obtain a confirmatory test with a serotonin release assay. We will continue to monitor this patient until her platelet counts start to improve. Once her platelet count is above 60,000 we can start her on Coumadin. She will need at least 1 year of anticoagulation given the fact that she has bilateral pulmonary emboli. She will need reassessment in the hematology clinic outpatient. I discussed this extensively with the patient, all questions were answered. Thank you for allowing me to participate in the care of this patient. I will continue to follow this patient along. MD COLUMBA Magallon/MARTINA /12:55 AM /8:30 AM
[2017-01-23] MEDS: SODIUM CHLORIDE 0.9% FLUSH 10 ML FLUSH IV FLUSH SCH ×2 (08:58→20:30)
--- NOTE | 2017-01-23 10:37 | HHI.PR ---
Subjective Remarks Patient reports she is feeling great. She denies shortness of breath or chest pain currently. Platelets slightly improved to 35K today. Objective Vitals Vital Signs Date Time Temp Pulse Resp B/P Pulse Ox O2 Delivery O2 Flow Rate FiO2 01/23/17 09:04 78 26 126/58 01/23/17 08:11 98.3 76 28 140/64 01/23/17 08:00 80 01/23/17 07:04 74 16 131/61 01/23/17 06:04 80 19 133/59 01/23/17 06:00 80 01/23/17 05:04 72 17 114/52 01/23/17 04:04 98.6 74 17 142/56 93 01/23/17 04:00 74 01/23/17 03:04 74 18 132/56 01/23/17 02:04 78 17 112/51 01/23/17 01:04 82 18 149/67 01/23/17 00:04 98.4 80 18 145/70 93 01/23/17 00:00 78 01/22/17 23:18 82 25 137/62 93 01/22/17 22:00 98 01/22/17 21:55 94 21 01/22/17 21:00 86 26 143/56 93 01/22/17 20:03 98.0 90 27 134/57 94 01/22/17 20:00 80 01/22/17 19:04 88 25 127/55 94 01/22/17 18:00 86 27 116/57 01/22/17 18:00 78 01/22/17 17:02 84 21 134/57 01/22/17 17:00 78 18 01/22/17 16:00 76 01/22/17 16:00 82 23 01/22/17 15:00 88 28 01/22/17 14:12 84 26 110/75 01/22/17 14:00 78 01/22/17 13:01 76 44 135/71 01/22/17 12:01 78 20 129/65 01/22/17 12:00 79 01/22/17 11:01 78 24 127/65 I/O 01/22/17 01/22/17 01/22/17 01/23/17 01/23/17 01/23/17 06:59 14:59 22:59 06:59 14:59 22:59 Intake Total 700 ml 480 ml 620 ml 210 ml Output Total 1200 ml Balance -500 ml 480 ml 620 ml 210 ml Intake Oral 100 ml 480 ml 500 ml 100 ml IV Total 600 ml 120 ml 110 ml Output Urine Total 1200 ml # Voids 1 3 2 1 # Bowel Movements 0 1 0 Result Diagram: 01/23/17 0425 01/22/17 0433 Imaging Last Impressions Lower Extremity Ultrasound 01/21/17 0000 Signed Impressions: Service Date/Time: Saturday, January 21, 2017 08:27 - CONCLUSION: No DVT in either lower extremity. Jorge Conroy MD Chest X-Ray 01/20/1722 Signed Impressions: Service Date/Time: Friday, January 20, 2017 09:37 - CONCLUSION: Healed granulomatous disease. No evidence of acute process. Alpesh Bales MD CT Angiography 01/20/17 0000 Signed Impressions: Service Date/Time: Friday, January 20, 2017 10:13 - CONCLUSION: 1. Extensive bilateral pulmonary emboli. 2. 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 Jorge Conroy MD Objective Remarks GENERAL: This is a well-nourished, well-developed patient, in no apparent distress. CARDIOVASCULAR: Normal rate and regular rhythm without murmurs, gallops, or rubs. RESPIRATORY: Good respiratory efforts. Breath sounds equal and clear to auscultation bilaterally. GASTROINTESTINAL: Abdomen soft, non-tender, non-distended. Normal active bowel sounds MUSCULOSKELETAL: Extremities without cyanosis, or edema. NEURO: Alert & Oriented x4 to person, place, time, situation. Moves all ext x4 PSYCH: Appropriate mood and affect. Procedures None A/P Problem List: (1) Bilateral pulmonary embolism ICD Code: I26.99 Status: Acute Plan: The patient initially treated with IV heparin. However the suprapatellar this drop in platelets. 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 She was switched to argatroban. Hematology consulted who agree with argatroban. HRT antibody pending. Per hematology, Plan to transition the patient to Coumadin once her platelets are above 60,000. She will need at least a year of anticoagulation and follow-up at the hematology clinic. Stable from a respiratory standpoint. Okay to transfer to floor. (2) Thrombocytopenia ICD Code: D69.6 Status: Acute Plan: Highly concerned for HIT. Platelets dropped precipitously after exposure to heparin. She was switched to argatroban. Hematology consulted who agree with argatroban. HIT antibody pending. Per hematology, Plan to transition the patient to coumadin once her platelets are above 60,000. She will need at least a year of anticoagulation and follow-up at the hematology clinic. (3) Status post total hip replacement, right ICD Code: Z96.641 Status: Acute Plan: PT evaluation Discharge Planning Transfer to floor today. Violet Donaldson MD January 23, 2017 10:37
--- NOTE | 2017-01-23 14:10 | HHI.PR ---
Subjective Remarks late entry patient seen on 01/22/17 at 10:30 am Patient denies cp/sob afebrile platelets dropped down to 25K vital signs stable Objective Vitals Vital Signs Date Time Temp Pulse Resp B/P Pulse Ox O2 Delivery O2 Flow Rate FiO2 01/23/17 09:04 78 26 126/58 01/23/17 08:11 98.3 76 28 140/64 01/23/17 08:00 95 21 01/23/17 08:00 80 01/23/17 07:04 74 16 131/61 01/23/17 06:04 80 19 133/59 01/23/17 06:00 80 01/23/17 05:04 72 17 114/52 01/23/17 04:04 98.6 74 17 142/56 93 01/23/17 04:00 74 01/23/17 03:04 74 18 132/56 01/23/17 02:04 78 17 112/51 01/23/17 01:04 82 18 149/67 01/23/17 00:04 98.4 80 18 145/70 93 01/23/17 00:00 78 01/22/17 23:18 82 25 137/62 93 01/22/17 22:00 98 01/22/17 21:55 94 21 01/22/17 21:00 86 26 143/56 93 01/22/17 20:03 98.0 90 27 134/57 94 01/22/17 20:00 80 01/22/17 19:04 88 25 127/55 94 01/22/17 18:00 86 27 116/57 01/22/17 18:00 78 01/22/17 17:02 84 21 134/57 01/22/17 17:00 78 18 01/22/17 16:00 76 01/22/17 16:00 82 23 01/22/17 15:00 88 28 01/22/17 14:12 84 26 110/75 I/O 01/22/17 01/22/17 01/22/17 01/23/17 01/23/17 01/23/17 07:00 15:00 23:00 07:00 15:00 23:00 Intake Total 700 ml 480 ml 620 ml 210 ml Output Total 1200 ml Balance -500 ml 480 ml 620 ml 210 ml Intake Oral 100 ml 480 ml 500 ml 100 ml IV Total 600 ml 120 ml 110 ml Output Urine Total 1200 ml # Voids 1 3 2 1 # Bowel Movements 0 1 0 Result Diagram: 01/23/17 0425 01/22/17 0433 Imaging Last Impressions Lower Extremity Ultrasound 01/21/17 0000 Signed Impressions: Service Date/Time: Saturday, January 21, 2017 08:27 - CONCLUSION: No DVT in either lower extremity. Jorge Conroy MD Chest X-Ray 01/20/17 0922 Signed Impressions: Service Date/Time: Friday, January 20, 2017 09:37 - CONCLUSION: Healed granulomatous disease. No evidence of acute process. Alpesh Bales MD CT Angiography 01/20/17 0000 Signed Impressions: Service Date/Time: Friday, January 20, 2017 10:13 - CONCLUSION: 1. Extensive bilateral pulmonary emboli. 2. 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 Jorge Conroy MD Objective Remarks GENERAL: This is a well-nourished, well-developed patient, in nad. SKIN: No rashes, ecchymoses or lesions. Cool and dry. HEAD: Atraumatic. Normocephalic. No temporal or scalp tenderness. EYES: Pupils equal round and reactive. Extraocular motions intact. No scleral icterus. No injection or drainage. ENT: Nose without bleeding, purulent drainage or septal hematoma. Throat without erythema, tonsillar hypertrophy or exudate. Uvula midline. Airway patent. NECK: Trachea midline. No JVD or lymphadenopathy. Supple, nontender, no meningeal signs. CARDIOVASCULAR: Regular rate and rhythm without murmurs, gallops, or rubs. RESPIRATORY: Clear to auscultation. Breath sounds equal bilaterally. No wheezes , rales, or rhonchi. GASTROINTESTINAL: Abdomen soft, non-tender, nondistended. No hepato-splenomegaly , or palpable masses. No guarding. MUSCULOSKELETAL: Extremities without clubbing, cyanosis, or edema. There is some right hip pain, no effusion, or edema noted. No calf tenderness. Negative Homans sign bilaterally. NEUROLOGICAL: Awake and alert. Cranial nerves II through XII intact. Motor and sensory grossly within normal limits. Five out of 5 muscle strength in all muscle groups. Normal speech. Procedures None Urinary Catheter: No Vascular Central Line Catheter: No A/P Problem List: (1) Bilateral pulmonary embolism ICD Code: I26.99 Status: Acute Plan: (2) Thrombocytopenia ICD Code: D69.6 Status: Acute (3) Status post total hip replacement, right ICD Code: Z96.641 Status: Acute Assessment and Plan (1) Bilateral pulmonary embolism Plan: The patient was admitted to intensive care unit for close monitoring given that she had bilateral PE which carries a high mortality rate Continue to monitor the patient on telemetry, Patient started on heparin drip 2D echo showed an EF of 55 to 60% ro RWMA. 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 Pulmonology following (2) Status post total hip replacement, right Plan: PT evaluation after the patient is more stable. Continue bedrest for now. 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 DC IV heparin and start IV Argatroban drip, consult hematology, monitor platelets. DVT prophylaxis: On heparin drip. Discharge Planning Continue to monitor int he ICU given recent platelet drop and increased risk of bleeding. Dawson Reese MD January 23, 2017 14:10
[2017-01-23 15:59] LABS: HEPARIN AB OD 2.885 O.D. (0.000-0.300); HEPARIN INDUCED PLATELET AB POSITIVE (NEGATIVE)
--- NOTE | 2017-01-23 17:07 | PD.ONC.PN ---
Subjective Subjective Remarks No CP/SOB. No LE edema. No bleeding. Objective Data Date Time Temp Pulse Resp B/P Pulse Ox O2 Delivery O2 Flow Rate FiO2 01/23/17 16:04 86 31 139/71 01/23/17 16:00 85 01/23/17 15:04 80 21 114/53 01/23/17 14:04 78 16 119/57 01/23/17 13:04 94 59 139/59 01/23/17 12:04 72 18 129/69 01/23/17 12:00 72 01/23/17 11:04 86 24 133/68 01/23/17 10:13 76 24 136/59 01/23/17 10:10 80 29 154/74 01/23/17 09:04 78 26 126/58 01/23/17 08:11 98.3 76 28 140/64 01/23/17 08:00 95 21 01/23/17 08:00 80 01/23/17 07:04 74 16 131/61 01/23/17 06:04 80 19 133/59 01/23/17 06:00 80 01/23/17 05:04 72 17 114/52 01/23/17 04:04 98.6 74 17 142/56 93 01/23/17 04:00 74 01/23/17 03:04 74 18 132/56 01/23/17 02:04 78 17 112/51 01/23/17 01:04 82 18 149/67 01/23/17 00:04 98.4 80 18 145/70 93 01/23/17 00:00 78 01/22/17 23:18 82 25 137/62 93 01/22/17 22:00 98 01/22/17 21:55 94 21 01/22/17 21:00 86 26 143/56 93 01/22/17 20:03 98.0 90 27 134/57 94 01/22/17 20:00 80 01/22/17 19:04 88 25 127/55 94 01/22/17 18:00 86 27 116/57 01/22/17 18:00 78 01/22/17 17:02 84 21 134/57 01/22/17 17:00 78 18 01/23/17 01/23/17 01/23/17 07:00 15:00 23:00 Intake Total 210 ml 620 ml Balance 210 ml 620 ml Result Diagram: 01/23/17 0425 01/22/17 0433 Laboratory Results Laboratory Tests Test 01/22/17 01/23/17 18:50 04:25 Activated Partial 50.7 SEC 51.4 SEC Thromboplast Time White Blood Count 4.0 TH/MM3 Red Blood Count 3.65 MIL/MM3 Hemoglobin 10.6 GM/DL Hematocrit 31.4 % Mean Corpuscular Volume 86.1 FL Mean Corpuscular Hemoglobin 29.0 PG Mean Corpuscular Hemoglobin 33.7 % Concent Red Cell Distribution Width 11.8 % Platelet Count 35 TH/MM3 Mean Platelet Volume 9.2 FL Neutrophils (%) (Auto) 61.3 % Lymphocytes (%) (Auto) 21.5 % Monocytes (%) (Auto) 11.7 % Eosinophils (%) (Auto) 4.8 % Basophils (%) (Auto) 0.7 % Neutrophils # (Auto) 2.4 TH/MM3 Lymphocytes # (Auto) 0.9 TH/MM3 Monocytes # (Auto) 0.5 TH/MM3 Eosinophils # (Auto) 0.2 TH/MM3 Basophils # (Auto) 0.0 TH/MM3 CBC Comment AUTO DIFF Differential Comment AUTO DIFF CONFIRMED Platelet Estimate LOW Platelet Morphology Comment NORMAL Red Cell Morphology Comment NORMAL Administered Medications Medications (Trade) Dose Ordered Sig/Tim Route PRN Reason Start Time Stop Time Status Last Admin Dose Admin Sodium Chloride (NS Flush) 2 ml BID IV FLUSH 01/20/17 21:00 01/22/17 21:55 Miscellaneous Information Patient in critical care unit? Ass... Q361D .XX 01/20/17 22:00 01/20/17 22:00 Chlorhexidine Gluconate 3 pack 3 pack DAILY@04 TOPICAL 01/21/17 04:00 01/25/17 04:01 01/23/17 04:00 Argatroban/Sodium Chloride (Novastan Inj/NS 250 ml Inj) 250 ml @ 0 mls/hr TITRATE IV 01/22/17 12:15 01/23/17 07:00 Objective Remarks GENERAL: Well-nourished, well-developed patient. SKIN: Warm and dry. HEAD: Normocephalic. EYES: No scleral icterus. No injection or drainage. NECK: Supple, trachea midline. No JVD or lymphadenopathy. LYMPHATIC: No adenopathy. CARDIOVASCULAR: Regular rate and rhythm without murmurs. RESPIRATORY: Breath sounds equal bilaterally. No accessory muscle use. GASTROINTESTINAL: Abdomen soft, non-tender, nondistended. EXTREMITIES: No cyanosis, or edema. MUSCULOSKELETAL: Adequate muscle tone. NEUROLOGICAL: No obvious focal deficit. Awake, alert, and oriented x3. PSYCHIATRIC: Appropriate mood and affect; insight and judgment normal. Assessment/Plan Problem List: (1) Bilateral pulmonary embolism Status: Acute Plan: Developed after hip replacement surgery. She self d/c the anticoagulant. US showed no LE DVT. Hemodynamically stable. Pulmonary symptoms improved. (2) Thrombocytopenia Status: Acute Plan: Acute thrombocytopenia. 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 She has had recent exposure to heparin within the last 30 days and when she was rechallenged with heparin she developed acute drop in her platelet count. HIT antibody +. Started on argatroban tolerating well, no bleeding. 01/23 Platelet up to 35K. Plan 1. Check LAURA. 2. Continue argatroban and bridge to coumadin when platelet count trende up to normal. 3. Monitor CBC. 4. Extensive discussion with pt and her sister. Justice David MD January 23, 2017 17:07
--- NOTE | 2017-01-23 17:59 | HHI.PR ---
Subjective Remarks Feels better.O2 sat 97 on RA On Argatroban IV. Plt upto 35 K. Will go on Coumadin Objective Vital Signs Date Time Temp Pulse Resp B/P Pulse Ox O2 Delivery O2 Flow Rate FiO2 01/23/17 16:04 86 31 139/71 01/23/17 16:00 85 01/23/17 15:04 80 21 114/53 01/23/17 14:04 78 16 119/57 01/23/17 13:04 94 59 139/59 01/23/17 12:04 72 18 129/69 01/23/17 12:00 72 01/23/17 11:04 86 24 133/68 01/23/17 10:13 76 24 136/59 01/23/17 10:10 80 29 154/74 01/23/17 09:04 78 26 126/58 01/23/17 08:11 98.3 76 28 140/64 01/23/17 08:00 95 21 01/23/17 08:00 80 01/23/17 07:04 74 16 131/61 01/23/17 06:04 80 19 133/59 01/23/17 06:00 80 01/23/17 05:04 72 17 114/52 01/23/17 04:04 98.6 74 17 142/56 93 01/23/17 04:00 74 01/23/17 03:04 74 18 132/56 01/23/17 02:04 78 17 112/51 01/23/17 01:04 82 18 149/67 01/23/17 00:04 98.4 80 18 145/70 93 01/23/17 00:00 78 01/22/17 23:18 82 25 137/62 93 01/22/17 22:00 98 01/22/17 21:55 94 21 01/22/17 21:00 86 26 143/56 93 01/22/17 20:03 98.0 90 27 134/57 94 01/22/17 20:00 80 01/22/17 19:04 88 25 127/55 94 01/22/17 18:00 86 27 116/57 01/22/17 18:00 78 I/O 5/10/17 5/10/17 5/10/17 5/11/17 5/11/17 5/11/17 07:00 15:00 23:00 07:00 15:00 23:00 Intake Total 700 ml 480 ml 620 ml 210 ml 620 ml Output Total 1200 ml Balance -500 ml 480 ml 620 ml 210 ml 620 ml Intake Oral 100 ml 480 ml 500 ml 100 ml 480 ml IV Total 600 ml 120 ml 110 ml 140 ml Output Urine Total 1200 ml # Voids 1 3 2 1 4 # Bowel Movements 0 1 0 2 Result Diagram: 01/23/17 0425 01/22/17 0433 Objective Remarks GENERAL: This is averagely built elderly white female, pale and in no acute distress. HEENT: Head is normocephalic. Pupils are reactive. Tongue moist. Throat is clear. Nasal mucosa clear. NECK: Supple. No bruits, no thyroid enlargement or lymphadenopathy. CHEST: Equal movements with decreased excursions. Breath sounds diminished at the periphery. HEART: The heart sounds are regular, S1-S2. No murmur. No S3. ABDOMEN: Soft, protuberant. No organomegaly or tenderness. Bowel sounds are active. EXTREMITIES: Movements of the right hip are restricted. There is no edema of the extremities. No calf tenderness on either side. NEUROLOGIC: Reflexes are 1+ with no gross motor deficits. RECTAL: Exam is deferred. SKIN: No lesions. Assessment and Plan Assessment and Plan IMPRESSION 1. Bilateral pulmonary emboli with hypoxemia. 2. History of right hip replacement. 3. Degenerative arthritis. 4. Possible DVT right leg. 5. ROYAL Plan : 1. CBC,Platelets in am 2. D/c o2 3. Nebs tid prn , Albuterol. 4 Argatroban as Ordered 5. Hematology recommendations for Anticoagulants Chloe Carmona MD January 23, 2017 17:59
[2017-01-24] VITALS (9 sets, daily range): BP systolic 126–154; BP diastolic 54–84; PULSE 69–85; RESP 16–19; TEMP 96.2–97.9; O2SAT 78–97
[2017-01-24 04:53] LABS: AUTOMATED NEUTROPHIL # 2.6 TH/MM3 (1.8-7.7); BASOPHIL % 0.7 % (0.0-2.0); EOSINOPHIL # 0.2 TH/MM3 (0-0.4); EOSINOPHIL % 5.8 % (0.0-4.0); HEMATOCRIT 33.3 % (35.0-46.0); LYMPH % 22.8 % (9.0-44.0); LYMPHOCYTE # 0.9 TH/MM3 (1.0-4.8); MEAN CELL VOLUME 87.3 FL (80.0-100.0); MEAN CORPUSCULAR HEMOGLOBIN 29.1 PG (27.0-34.0); MEAN CORPUSCULAR HGB CONC 33.4 % (32.0-36.0); MONO % 10.5 % (0.0-8.0); NEUT % 60.2 % (16.0-70.0); PLATELET COUNT 46 TH/MM3 (150-450); RED BLOOD COUNT 3.81 MIL/MM3 (4.00-5.30); RED CELL DISTRIBUTION WIDTH 12.1 % (11.6-17.2); WHITE BLOOD COUNT 4.1 TH/MM3 (4.0-11.0)
[2017-01-24 04:57] LABS: HEMO FLAGS DIFF FINAL
[2017-01-24 04:59] LABS: POTASSIUM 4.2 MEQ/L (3.5-5.1)
[2017-01-24 05:03] LABS: APTT (PATIENT) 52.3 SEC (24.3-30.1)
[2017-01-24] MEDS: ACETAMINOPHEN 325 MG TAB PO PRN (05:06)
[2017-01-24 05:08] LABS: BICARBONATE 27.8 MEQ/L (21.0-32.0)
[2017-01-24] MEDS: SODIUM CHLOR 0.9% IV SCH (06:15)
[2017-01-24] MEDS: ARGATROBAN IV SCH (06:15)
[2017-01-24 07:14] LABS: APTT (PATIENT) 53.7 SEC (24.3-30.1)
[2017-01-24] MEDS: SODIUM CHLORIDE 0.9% FLUSH 10 ML FLUSH IV FLUSH SCH ×2 (09:00→20:11)
--- NOTE | 2017-01-24 11:04 | HHI.PR ---
Subjective Remarks Patient seen in follow-up for bilateral PE. She reports she is feeling well. No chest pain or shortness of breath. No bleeding. Platelets improving to 46,000. Objective Vitals Vital Signs Date Time Temp Pulse Resp B/P Pulse Ox O2 Delivery O2 Flow Rate FiO2 01/24/17 08:00 96.2 69 18 144/70 96 01/24/17 06:00 97.0 74 16 142/77 96 01/24/17 04:00 97.9 78 18 143/66 78 01/24/17 00:00 75 01/24/17 00:00 97.6 74 19 126/54 94 01/23/17 20:25 95 21 01/23/17 20:00 84 01/23/17 19:00 98.0 80 18 158/52 95 01/23/17 16:04 86 31 139/71 01/23/17 16:00 85 01/23/17 15:04 80 21 114/53 01/23/17 14:04 78 16 119/57 01/23/17 13:04 94 59 139/59 01/23/17 12:04 72 18 129/69 01/23/17 12:00 72 01/23/17 11:04 86 24 133/68 I/O 01/23/17 01/23/17 01/23/17 01/24/17 01/24/17 01/24/17 07:00 15:00 23:00 07:00 15:00 23:00 Intake Total 210 ml 620 ml 390 ml 387 ml Balance 210 ml 620 ml 390 ml 387 ml Intake Oral 100 ml 480 ml 300 ml 300 ml IV Total 110 ml 140 ml 90 ml 87 ml # Voids 1 4 2 2 # Bowel Movements 0 2 Result Diagram: 01/24/17 0415 01/24/17 0415 Objective Remarks GENERAL: This is a well-nourished, well-developed patient, in no apparent distress. CARDIOVASCULAR: Normal rate and regular rhythm without murmurs, gallops, or rubs. RESPIRATORY: Good respiratory efforts. Breath sounds equal and clear to auscultation bilaterally. GASTROINTESTINAL: Abdomen soft, non-tender, non-distended. Normal active bowel sounds MUSCULOSKELETAL: Extremities without cyanosis, or edema. NEURO: Alert & Oriented x4 to person, place, time, situation. Moves all ext x4 PSYCH: Appropriate mood and affect. Procedures None A/P Problem List: (1) Bilateral pulmonary embolism ICD Code: I26.99 Status: Acute Plan: The patient initially treated with IV heparin. However she had a precipitous drop in platelets. 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 She was switched to argatroban. Hematology following. HIT antibody pending. Per hematology, Plan to transition the patient to Coumadin once her platelets trending up to normal. She will need at least a year of anticoagulation and follow-up at the hematology clinic. Stable from a respiratory standpoint. (2) Thrombocytopenia ICD Code: D69.6 Status: Acute Plan: Highly concerned for HIT. Platelets dropped precipitously after exposure to heparin. She was switched to argatroban. Hematology consulted who agree with argatroban. HIT antibody pending. Per hematology, Plan to transition the patient to Coumadin once her platelets improved to normal. She will need at least a year of anticoagulation and follow-up at the hematology clinic. Follow-up CBC in a.m. (3) Status post total hip replacement, right ICD Code: Z96.641 Status: Acute Plan: Doing well. Physical activity as tolerated Violet Donaldson MD January 24, 2017 11:03
--- NOTE | 2017-01-24 16:50 | PD.ONC.PN ---
Subjective Subjective Remarks Patient denies acute complaints, reports feeling well. Denies difficulty breathing at this time. Has been up out of bed and walk short distances without too much difficulty. Once know when she can be transitioned to warfarin and also be discharged home. Objective Data Date Time Temp Pulse Resp B/P Pulse Ox O2 Delivery O2 Flow Rate FiO2 01/24/17 16:10 97.0 85 18 136/84 97 01/24/17 12:00 96.9 78 18 142/64 96 01/24/17 08:00 96.2 69 18 144/70 96 01/24/17 06:00 97.0 74 16 142/77 96 01/24/17 04:00 97.9 78 18 143/66 78 01/24/17 00:00 75 01/24/17 00:00 97.6 74 19 126/54 94 01/23/17 20:25 95 21 01/23/17 20:00 84 01/23/17 19:00 98.0 80 18 158/52 95 01/24/17 01/24/17 01/24/17 07:00 15:00 23:00 Intake Total 387 ml 1110 ml Balance 387 ml 1110 ml Result Diagram: 01/24/17 0415 01/24/17 0415 Laboratory Results Laboratory Tests Test 01/24/17 04:15 White Blood Count 4.1 TH/MM3 Red Blood Count 3.81 MIL/MM3 Hemoglobin 11.1 GM/DL Hematocrit 33.3 % Mean Corpuscular Volume 87.3 FL Mean Corpuscular Hemoglobin 29.1 PG Mean Corpuscular Hemoglobin 33.4 % Concent Red Cell Distribution Width 12.1 % Platelet Count 46 TH/MM3 Mean Platelet Volume 8.5 FL Neutrophils (%) (Auto) 60.2 % Lymphocytes (%) (Auto) 22.8 % Monocytes (%) (Auto) 10.5 % Eosinophils (%) (Auto) 5.8 % Basophils (%) (Auto) 0.7 % Neutrophils # (Auto) 2.6 TH/MM3 Lymphocytes # (Auto) 0.9 TH/MM3 Monocytes # (Auto) 0.4 TH/MM3 Eosinophils # (Auto) 0.2 TH/MM3 Basophils # (Auto) 0.0 TH/MM3 CBC Comment DIFF FINAL Differential Comment Activated Partial 53.7 SEC Thromboplast Time Sodium Level 142 MEQ/L Potassium Level 4.2 MEQ/L Chloride Level 107 MEQ/L Carbon Dioxide Level 27.8 MEQ/L Anion Gap 7 MEQ/L Blood Urea Nitrogen 12 MG/DL Creatinine 0.71 MG/DL Estimat Glomerular Filtration 80 ML/MIN Rate Random Glucose 95 MG/DL Calcium Level 8.8 MG/DL Administered Medications Medications (Trade) Dose Ordered Sig/Tim Route PRN Reason Start Time Stop Time Status Last Admin Dose Admin Sodium Chloride (NS Flush) 2 ml BID IV FLUSH 01/20/17 21:00 01/23/17 20:30 Acetaminophen (Tylenol) 650 mg Q4H PRN PO TEMP > 100.4 01/20/17 17:00 01/24/17 05:06 Miscellaneous Information Patient in critical care unit? Ass... Q361D .XX 01/20/17 22:00 01/20/17 22:00 Chlorhexidine Gluconate 3 pack 3 pack DAILY@04 TOPICAL 01/21/17 04:00 01/25/17 04:01 01/23/17 20:30 Argatroban/Sodium Chloride (Novastan Inj/NS 250 ml Inj) 250 ml @ 0 mls/hr TITRATE IV 01/22/17 12:15 01/23/17 07:00 Objective Remarks GENERAL: Well-nourished, well-developed patient. SKIN: Warm and dry. HEAD: Normocephalic. EYES: No scleral icterus. No injection or drainage. NECK: Supple, trachea midline. No JVD or lymphadenopathy. LYMPHATIC: No adenopathy. CARDIOVASCULAR: Regular rate and rhythm without murmurs. RESPIRATORY: Breath sounds equal bilaterally. No accessory muscle use. GASTROINTESTINAL: Abdomen soft, non-tender, nondistended. EXTREMITIES: No cyanosis, or edema. MUSCULOSKELETAL: Adequate muscle tone. NEUROLOGICAL: No obvious focal deficit. Awake, alert, and oriented x3. PSYCHIATRIC: Appropriate mood and affect; insight and judgment normal. Assessment/Plan Problem List: (1) Bilateral pulmonary embolism Status: Acute Plan: Developed after hip replacement surgery. She self d/c the anticoagulant. US showed no LE DVT. Hemodynamically stable. Pulmonary symptoms improved. (2) Thrombocytopenia Status: Acute Plan: Acute thrombocytopenia. 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 She has had recent exposure to heparin within the last 30 days and when she was rechallenged with heparin she developed acute drop in her platelet count. HIT antibody +. Started on argatroban tolerating well, no bleeding. 01/23 Platelet up to 35K. 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 Await LAURA for confirmation of diagnosis of ROYAL. 2. Continue argatroban, as a single agent for now. Initiate warfarin bridging once her lately count is clearly trending up. 3. Monitor CBC. Van Garcia MD January 24, 2017 16:50
[2017-01-25 00:38] VITALS: BP 110/51; PULSE 80; RESP 18; TEMP 97; O2SAT 96
[2017-01-25] MEDS: SODIUM CHLOR 0.9% IV SCH ×2 (02:18→21:33)
[2017-01-25] MEDS: ARGATROBAN IV SCH ×2 (02:18→21:33)
[2017-01-25] MEDS: CHLORHEXIDINE GLUCONATE 2 % 1 PACK (2 CLOTHS)(taper/protocol) TOPICAL SCH (04:00)
[2017-01-25 07:16] LABS: AUTOMATED NEUTROPHIL # 2.5 TH/MM3 (1.8-7.7); EOSINOPHIL # 0.3 TH/MM3 (0-0.4); EOSINOPHIL % 6.5 % (0.0-4.0); HEMATOCRIT 34.2 % (35.0-46.0); LYMPH % 20.3 % (9.0-44.0); LYMPHOCYTE # 0.8 TH/MM3 (1.0-4.8); MEAN CELL VOLUME 87.1 FL (80.0-100.0); MEAN CORPUSCULAR HEMOGLOBIN 28.5 PG (27.0-34.0); MEAN CORPUSCULAR HGB CONC 32.7 % (32.0-36.0); MONO % 11.2 % (0.0-8.0); PLATELET COUNT 59 TH/MM3 (150-450); RED BLOOD COUNT 3.92 MIL/MM3 (4.00-5.30)
[2017-01-25 07:22] LABS: HEMO FLAGS AUTO DIFF
[2017-01-25 07:26] LABS: POTASSIUM 4.1 MEQ/L (3.5-5.1)
[2017-01-25 07:27] LABS: APTT (PATIENT) 49.1 SEC (24.3-30.1)
[2017-01-25 07:29] LABS: BICARBONATE 25.8 MEQ/L (21.0-32.0)
[2017-01-25 08:00] VITALS: BP 125/69; PULSE 81; RESP 17; TEMP 98.3; O2SAT 94
[2017-01-25 08:07] LABS: PLATELET ESTIMATE SMEAR LOW (NORMAL); PLATELET MORPHOLOGY ENLARGED (NORMAL); SCAN/DIFF AUTO DIFF CONFIRMED
--- NOTE | 2017-01-25 10:34 | HHI.PR ---
Subjective Remarks Patient reports she is feeling well. No chest pain or shortness of breath. No bleeding. Platelets 59,000. Patient would like to know when we can start Coumadin. Objective Vitals Vital Signs Date Time Temp Pulse Resp B/P Pulse Ox O2 Delivery O2 Flow Rate FiO2 01/25/17 08:00 98.3 81 17 125/69 94 01/25/17 04:00 01/25/17 00:38 97.0 80 18 110/51 96 01/24/17 21:16 97.1 84 16 154/67 97 01/24/17 19:48 96 21 01/24/17 16:10 97.0 85 18 136/84 97 01/24/17 12:00 96.9 78 18 142/64 96 01/24/17 11:00 97 21 I/O 01/24/17 01/24/17 01/24/17 01/25/17 01/25/17 01/25/17 07:00 15:00 23:00 07:00 15:00 23:00 Intake Total 387 ml 1110 ml Balance 387 ml 1110 ml Intake Oral 300 ml 1110 ml IV Total 87 ml # Voids 2 2 5 # Bowel Movements 1 Result Diagram: 01/25/17 0607 01/25/17 0607 Objective Remarks GENERAL: This is a well-nourished, well-developed patient, in no apparent distress. CARDIOVASCULAR: Normal rate and regular rhythm without murmurs, gallops, or rubs. RESPIRATORY: Good respiratory efforts. Breath sounds equal and clear to auscultation bilaterally. GASTROINTESTINAL: Abdomen soft, non-tender, non-distended. Normal active bowel sounds MUSCULOSKELETAL: Extremities without cyanosis, or edema. NEURO: Alert & Oriented x4 to person, place, time, situation. Moves all ext x4 PSYCH: Appropriate mood and affect. Procedures None A/P Problem List: (1) Bilateral pulmonary embolism ICD Code: I26.99 Status: Acute Plan: The patient initially treated with IV heparin. However she had a precipitous drop in platelets. 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 She was switched to argatroban. Hematology following. HIT antibody positive. Per hematology, Plan to transition the patient to Coumadin. Defer to hematology to decide on acceptable platelet counts to start the Coumadin. She will need at least a year of anticoagulation and follow-up at the hematology clinic. Stable from a respiratory standpoint. (2) Thrombocytopenia ICD Code: D69.6 Status: Acute Plan: Highly concerned for HIT. Platelets dropped precipitously after exposure to heparin. She was switched to argatroban. Hematology consulted who agree with argatroban. HIT antibody positive. Per hematology, Plan to transition the patient to Coumadin. Timing to be determined by hematology. She will need at least a year of anticoagulation and follow-up at the hematology clinic. Follow-up CBC in a.m. (3) Status post total hip replacement, right ICD Code: Z96.641 Status: Acute Plan: Doing well. Ambulating well. Violet Donaldson MD January 25, 2017 10:34
[2017-01-25 12:00] VITALS: BP 122/71; PULSE 77; RESP 18; TEMP 98.1; O2SAT 96
[2017-01-25 16:00] VITALS: BP 125/59; PULSE 86; RESP 18; TEMP 97.8; O2SAT 98
[2017-01-25] MEDS: SODIUM CHLORIDE 0.9% FLUSH 10 ML FLUSH IV FLUSH SCH ×2 (16:38→20:06)
[2017-01-25 18:14] LABS: APTT (PATIENT) 50.2 SEC (24.3-30.1)
[2017-01-25 21:31] VITALS: BP 139/77; PULSE 91; RESP 18; TEMP 98.6; O2SAT 98
[2017-01-26 00:14] VITALS: BP 142/75; PULSE 84; RESP 16; TEMP 98; O2SAT 97
[2017-01-26 05:53] LABS: APTT (PATIENT) 51.4 SEC (24.3-30.1)
[2017-01-26 06:05] LABS: AUTOMATED NEUTROPHIL # 2.5 TH/MM3 (1.8-7.7); BASOPHIL % 0.9 % (0.0-2.0); EOSINOPHIL # 0.3 TH/MM3 (0-0.4); HEMATOCRIT 33.9 % (35.0-46.0); LYMPH % 23.7 % (9.0-44.0); MEAN CELL VOLUME 87.2 FL (80.0-100.0); MEAN CORPUSCULAR HEMOGLOBIN 28.7 PG (27.0-34.0); MEAN CORPUSCULAR HGB CONC 32.9 % (32.0-36.0); NEUT % 58.4 % (16.0-70.0); PLATELET COUNT 82 TH/MM3 (150-450); RED BLOOD COUNT 3.89 MIL/MM3 (4.00-5.30); RED CELL DISTRIBUTION WIDTH 12.1 % (11.6-17.2); WHITE BLOOD COUNT 4.3 TH/MM3 (4.0-11.0)
[2017-01-26 06:08] LABS: HEMO FLAGS AUTO DIFF
[2017-01-26 06:56] LABS: SCAN/DIFF AUTO DIFF CONFIRMED
[2017-01-26 08:00] VITALS: BP 152/60; PULSE 71; RESP 17; TEMP 98.2; O2SAT 97
--- NOTE | 2017-01-26 08:46 | HHI.PR ---
Subjective Remarks Patient reports she is feeling well today. No bleeding, no shortness of breath or chest pain. Platelets 82,000. Objective Vitals Vital Signs Date Time Temp Pulse Resp B/P Pulse Ox O2 Delivery O2 Flow Rate FiO2 01/26/17 08:00 98.2 71 17 152/60 97 01/26/17 05:22 01/26/17 00:14 98.0 84 16 142/75 97 01/25/17 21:31 98.6 91 18 139/77 98 01/25/17 16:00 97.8 86 18 125/59 98 01/25/17 12:00 98.1 77 18 122/71 96 I/O 01/25/17 01/25/17 01/25/17 01/26/17 01/26/17 01/26/17 07:00 15:00 23:00 07:00 15:00 23:00 Intake Total 200 ml 874 ml 118 ml Balance 200 ml 874 ml 118 ml Intake Oral 240 ml IV Total 200 ml 634 ml 118 ml # Voids 5 2 Result Diagram: 01/26/17 0447 01/25/17 0607 Imaging Last Impressions Lower Extremity Ultrasound 01/21/17 0000 Signed Impressions: Service Date/Time: Saturday, January 21, 2017 08:27 - CONCLUSION: No DVT in either lower extremity. Jorge Conroy MD Chest X-Ray 01/20/17 0922 Signed Impressions: Service Date/Time: Friday, January 20, 2017 09:37 - CONCLUSION: Healed granulomatous disease. No evidence of acute process. Alpesh Bales MD CT Angiography 01/20/17 0000 Signed Impressions: Service Date/Time: Friday, January 20, 2017 10:13 - CONCLUSION: 1. Extensive bilateral pulmonary emboli. 2. 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 Jorge Conroy MD Objective Remarks GENERAL: This is a well-nourished, well-developed patient, in no apparent distress. CARDIOVASCULAR: Normal rate and regular rhythm without murmurs, gallops, or rubs. RESPIRATORY: Good respiratory efforts. Breath sounds equal and clear to auscultation bilaterally. GASTROINTESTINAL: Abdomen soft, non-tender, non-distended. Normal active bowel sounds MUSCULOSKELETAL: Extremities without cyanosis, or edema. NEURO: Alert & Oriented x4 to person, place, time, situation. Moves all ext x4 PSYCH: Appropriate mood and affect. Procedures None A/P Problem List: (1) Bilateral pulmonary embolism ICD Code: I26.99 Status: Acute Plan: The patient initially treated with IV heparin. However she had a precipitous drop in platelets. 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 She was switched to argatroban. Hematology following. HIT antibody positive. DW Dr. Garcia today. start transition to Warfarin. She will need at least a year of anticoagulation and follow-up at the hematology clinic. Stable from a respiratory standpoint. (2) Thrombocytopenia ICD Code: D69.6 Status: Acute Plan: Steadily improving. 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 Platelets dropped precipitously after exposure to heparin. She was switched to argatroban. HIT antibody positive. Platelets trending back up. Transitioning to Coumadin as above. She will need at least a year of anticoagulation and follow-up at the hematology clinic. Follow-up CBC, PT/INR in a.m. (3) Status post total hip replacement, right ICD Code: Z96.641 Status: Acute Plan: Doing well. Ambulating well. Violet Donaldson MD January 26, 2017 08:46
[2017-01-26 09:00] LABS: INTERNATIONAL NORMALIZED RATIO 1.5 RATIO; PROTHROMBIN TIME - PATIENT 16.9 SEC (9.8-11.6)
[2017-01-26 12:00] VITALS: BP 140/71; PULSE 75; RESP 18; TEMP 97.8; O2SAT 96
[2017-01-26] MEDS: ARGATROBAN IV SCH (14:15)
[2017-01-26] MEDS: SODIUM CHLOR 0.9% IV SCH (14:15)
[2017-01-26] MEDS: WARFARIN SOD 4 MG TAB PO SCH (15:34)
[2017-01-26 16:00] VITALS: BP 138/79; PULSE 76; RESP 17; TEMP 97.9; O2SAT 97
[2017-01-26 19:50] VITALS: O2SAT 98
[2017-01-26] MEDS: SODIUM CHLORIDE 0.9% FLUSH 10 ML FLUSH IV FLUSH SCH (20:40)
[2017-01-26 20:50] VITALS: BP 142/77; PULSE 87; RESP 18; TEMP 96.4; O2SAT 96
[2017-01-27] VITALS: BP 145/73; PULSE 81; RESP 16; TEMP 97; O2SAT 100
[2017-01-27] MEDS: ARGATROBAN IV SCH (04:07)
[2017-01-27] MEDS: SODIUM CHLOR 0.9% IV SCH (04:07)
[2017-01-27 04:45] VITALS: BP 140/66; PULSE 75; RESP 18; TEMP 96.8; O2SAT 93
[2017-01-27 07:07] LABS: HEMATOCRIT 33.9 % (35.0-46.0); MEAN CELL VOLUME 86.7 FL (80.0-100.0); MEAN CORPUSCULAR HEMOGLOBIN 28.7 PG (27.0-34.0); MEAN CORPUSCULAR HGB CONC 33.1 % (32.0-36.0); PLATELET COUNT 110 TH/MM3 (150-450); RED BLOOD COUNT 3.91 MIL/MM3 (4.00-5.30); RED CELL DISTRIBUTION WIDTH 12.3 % (11.6-17.2); REVIEW FLAG FINAL; WHITE BLOOD COUNT 4.5 TH/MM3 (4.0-11.0)
[2017-01-27 07:16] LABS: APTT (PATIENT) 51.6 SEC (24.3-30.1); INTERNATIONAL NORMALIZED RATIO 1.5 RATIO; PROTHROMBIN TIME - PATIENT 17.4 SEC (9.8-11.6)
[2017-01-27 08:00] VITALS: BP 126/73; PULSE 87; RESP 20; TEMP 96.3; O2SAT 95
[2017-01-27] MEDS: SODIUM CHLORIDE 0.9% FLUSH 10 ML FLUSH IV FLUSH SCH ×2 (08:24→19:58)
--- NOTE | 2017-01-27 10:14 | HHI.PR ---
Subjective Remarks Patient reports she is feeling great. No shortness of breath or chest pain. No episodes of bleeding. She is inquiring about when she will be able to go home. Objective Vitals Vital Signs Date Time Temp Pulse Resp B/P Pulse Ox O2 Delivery O2 Flow Rate FiO2 01/27/17 08:00 96.3 87 20 126/73 95 01/27/17 04:45 96.8 75 18 140/66 93 01/27/17 00:00 97.0 81 16 145/73 100 01/26/17 20:50 96.4 87 18 142/77 96 01/26/17 19:50 98 21 01/26/17 16:00 97.9 76 17 138/79 97 01/26/17 12:00 97.8 75 18 140/71 96 I/O 01/26/17 01/26/17 01/26/17 01/27/17 01/27/17 01/27/17 07:00 15:00 23:00 07:00 15:00 23:00 Intake Total 118 ml 111 ml 240 ml 377 ml Balance 118 ml 111 ml 240 ml 377 ml Intake Oral 240 ml IV Total 118 ml 111 ml 377 ml # Voids 2 3 1 2 # Bowel Movements 1 0 Result Diagram: 01/27/17 0535 01/27/17 0535 Objective Remarks GENERAL: This is a well-nourished, well-developed patient, in no apparent distress. CARDIOVASCULAR: Normal rate and regular rhythm without murmurs, gallops, or rubs. RESPIRATORY: Good respiratory efforts. Breath sounds equal and clear to auscultation bilaterally. GASTROINTESTINAL: Abdomen soft, non-tender, non-distended. Normal active bowel sounds MUSCULOSKELETAL: Extremities without cyanosis, or edema. NEURO: Alert & Oriented x4 to person, place, time, situation. Moves all ext x4 PSYCH: Appropriate mood and affect. Procedures None A/P Problem List: (1) Bilateral pulmonary embolism ICD Code: I26.99 Status: Acute Plan: The patient initially treated with IV heparin. However she had a precipitous drop in platelets. 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 She was switched to argatroban. Hematology following. HIT antibody positive. Transition to warfarin. INR 1.5 today. She will need at least a year of anticoagulation and follow-up at the hematology clinic. Will discuss with hematology regarding how much overlapping is needed prior to discharge once her INR is therapeutic. Stable from a respiratory standpoint. (2) Thrombocytopenia ICD Code: D69.6 Status: Acute Plan: Steadily improving. 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 Platelets dropped precipitously after exposure to heparin. She was switched to argatroban. HIT antibody positive. Platelets trending back up. Transitioned to Coumadin as above, low dose 4 mg daily.. She will need at least a year of anticoagulation and follow-up at the hematology clinic. Follow-up CBC, PT/INR in a.m. (3) Status post total hip replacement, right ICD Code: Z96.641 Status: Acute Plan: Doing well. Ambulating well. Violet Donaldson MD January 27, 2017 10:13
[2017-01-27 12:00] VITALS: BP 133/70; PULSE 74; RESP 20; TEMP 96.6; O2SAT 99
[2017-01-27 16:00] VITALS: BP 98/68; PULSE 82; RESP 20; TEMP 96.4; O2SAT 96
[2017-01-27] MEDS: WARFARIN SOD 4 MG TAB PO SCH (16:11)
--- NOTE | 2017-01-27 18:47 | PD.ONC.PN ---
Subjective Subjective Remarks Pt had many questions regarding Coumadin. Questions answered. Objective Data Date Time Temp Pulse Resp B/P Pulse Ox O2 Delivery O2 Flow Rate FiO2 01/27/17 16:00 96.4 82 20 98/68 96 01/27/17 12:00 96.6 74 20 133/70 99 01/27/17 08:00 96.3 87 20 126/73 95 01/27/17 04:45 96.8 75 18 140/66 93 01/27/17 00:00 97.0 81 16 145/73 100 01/26/17 20:50 96.4 87 18 142/77 96 01/26/17 19:50 98 21 01/27/17 01/27/17 01/27/17 07:00 15:00 23:00 Intake Total 377 ml 870 ml Balance 377 ml 870 ml Result Diagram: 01/27/17 0535 01/27/17 0535 Laboratory Results Laboratory Tests Test 01/27/17 05:35 White Blood Count 4.5 TH/MM3 Red Blood Count 3.91 MIL/MM3 Hemoglobin 11.2 GM/DL Hematocrit 33.9 % Mean Corpuscular Volume 86.7 FL Mean Corpuscular Hemoglobin 28.7 PG Mean Corpuscular Hemoglobin 33.1 % Concent Red Cell Distribution Width 12.3 % Platelet Count 110 TH/MM3 Mean Platelet Volume 8.5 FL Prothrombin Time 17.4 SEC Prothromb Time International 1.5 RATIO Ratio Activated Partial 51.6 SEC Thromboplast Time Sodium Level 141 MEQ/L Potassium Level 4.0 MEQ/L Chloride Level 106 MEQ/L Carbon Dioxide Level 27.0 MEQ/L Anion Gap 8 MEQ/L Blood Urea Nitrogen 11 MG/DL Creatinine 0.67 MG/DL Estimat Glomerular Filtration 86 ML/MIN Rate Random Glucose 85 MG/DL Calcium Level 8.9 MG/DL Administered Medications Medications (Trade) Dose Ordered Sig/Tim Route PRN Reason Start Time Stop Time Status Last Admin Dose Admin Sodium Chloride (NS Flush) 2 ml BID IV FLUSH 01/20/17 21:00 01/26/17 20:40 Acetaminophen (Tylenol) 650 mg Q4H PRN PO TEMP > 100.4 01/20/17 17:00 01/24/17 05:06 Miscellaneous Information Patient in critical care unit? Ass... Q361D .XX 01/20/17 22:00 5/8/17 22:00 Argatroban/Sodium Chloride (Novastan Inj/NS 250 ml Inj) 250 ml @ 0 mls/hr TITRATE IV 01/22/17 12:15 01/27/17 04:07 Warfarin Sodium (Coumadin) 4 mg DAILY@16 PO 01/26/17 16:00 01/27/17 16:11 Objective Remarks GENERAL: Well-nourished, well-developed patient. SKIN: Warm and dry. HEAD: Normocephalic. EYES: No scleral icterus. No injection or drainage. NECK: Supple, trachea midline. No JVD or lymphadenopathy. LYMPHATIC: No adenopathy. CARDIOVASCULAR: Regular rate and rhythm without murmurs. RESPIRATORY: Breath sounds equal bilaterally. No accessory muscle use. GASTROINTESTINAL: Abdomen soft, non-tender, nondistended. EXTREMITIES: No cyanosis, or edema. MUSCULOSKELETAL: Adequate muscle tone. NEUROLOGICAL: No obvious focal deficit. Awake, alert, and oriented x3. PSYCHIATRIC: Appropriate mood and affect; insight and judgment normal. Assessment/Plan Problem List: (1) Bilateral pulmonary embolism Status: Acute Plan: 01/27/17. 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 Anticoagulant therapy with Coumadin, goal continue anticoagulation minimum 3 months, anticipate longer. Doing well clinically from respiratory standpoint. Eager to go home. Developed after hip replacement surgery. She self d/c the anticoagulant. US showed no LE DVT. Hemodynamically stable. Pulmonary symptoms improved. (2) Thrombocytopenia Status: Acute Plan: 01/27/17. Platelet 110K, still not normal. INR 1.5 while on Argatroban, anticipate 1-2 days to reach INR >4 before stopping Argatroban. Monitor platelet until recovery. Monitor for bleeding. Acute thrombocytopenia. 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 She has had recent exposure to heparin within the last 30 days and when she was rechallenged with heparin she developed acute drop in her platelet count. HIT antibody +. Started on argatroban tolerating well, no bleeding. 01/23 Platelet up to 35K. Plan 1. HIT Gaby is positive. 2. Follow LAURA for confirmation of diagnosis of ROYAL. 3. Continue argatroban bridge to therapeutic INR 4. Pt intend to follow up with Dr. Hardy PCP to check pt/inr this week pending DC. Willow Boss MD January 27, 2017 18:47
--- NOTE | 2017-01-27 19:30 | HHI.PR ---
Subjective Remarks Feels better.O2 sat 97 on RA. No SOB at rest On Argatroban IV. on Coumadin INR 1.5 Objective Vital Signs Date Time Temp Pulse Resp B/P Pulse Ox O2 Delivery O2 Flow Rate FiO2 01/27/17 16:00 96.4 82 20 98/68 96 01/27/17 12:00 96.6 74 20 133/70 99 01/27/17 08:00 96.3 87 20 126/73 95 01/27/17 04:45 96.8 75 18 140/66 93 01/27/17 00:00 97.0 81 16 145/73 100 01/26/17 20:50 96.4 87 18 142/77 96 01/26/17 19:50 98 21 I/O 01/26/17 01/26/17 01/26/17 01/27/17 01/27/17 01/27/17 07:00 15:00 23:00 07:00 15:00 23:00 Intake Total 118 ml 111 ml 240 ml 377 ml 870 ml Balance 118 ml 111 ml 240 ml 377 ml 870 ml Intake Oral 240 ml 870 ml IV Total 118 ml 111 ml 377 ml # Voids 2 3 1 2 4 # Bowel Movements 1 0 1 Result Diagram: 01/27/17 0535 01/27/17 0535 Objective Remarks GENERAL: This is averagely built elderly white female, pale and in no acute distress. HEENT: Head is normocephalic. Pupils are reactive. Tongue moist. Throat is clear. Nasal mucosa clear. NECK: Supple. No bruits, no thyroid enlargement or lymphadenopathy. CHEST: Equal movements with decreased excursions. Breath sounds diminished at the periphery. HEART: The heart sounds are regular, S1-S2. No murmur. No S3. ABDOMEN: Soft, protuberant. No organomegaly or tenderness. Bowel sounds are active. EXTREMITIES: There is no edema of the extremities. No calf tenderness on either side. NEUROLOGIC: Reflexes are 1+ with no gross motor deficits. RECTAL: Exam is deferred. SKIN: No lesions. Assessment and Plan Assessment and Plan IMPRESSION 1. Bilateral pulmonary emboli with hypoxemia. 2. History of right hip replacement. 3. Degenerative arthritis. 4. Possible DVT right leg. 5. ROYAL Plan : 1. Coumadin 5 mg daily, and get INR >2 2. D/c o2 3. D/C Nebs 4 Argatroban as Ordered 5. Home when OK with Hematology Chloe Carmona MD January 27, 2017 19:30
[2017-01-27 20:00] VITALS: BP 107/70; PULSE 86; RESP 20; TEMP 97.8; O2SAT 95
[2017-01-28] VITALS: BP 100/60; PULSE 76; RESP 16; TEMP 97.1; O2SAT 95
[2017-01-28 06:58] LABS: HEMATOCRIT 33.6 % (35.0-46.0); MEAN CELL VOLUME 87.4 FL (80.0-100.0); MEAN CORPUSCULAR HEMOGLOBIN 29.4 PG (27.0-34.0); MEAN CORPUSCULAR HGB CONC 33.6 % (32.0-36.0); PLATELET COUNT 135 TH/MM3 (150-450); RED BLOOD COUNT 3.85 MIL/MM3 (4.00-5.30); RED CELL DISTRIBUTION WIDTH 12.6 % (11.6-17.2); REVIEW FLAG FINAL; WHITE BLOOD COUNT 3.9 TH/MM3 (4.0-11.0)
[2017-01-28 07:14] LABS: APTT (PATIENT) 48.9 SEC (24.3-30.1); INTERNATIONAL NORMALIZED RATIO 1.5 RATIO; PROTHROMBIN TIME - PATIENT 17.4 SEC (9.8-11.6)
[2017-01-28 08:00] VITALS: BP 120/69; PULSE 89; RESP 19; TEMP 97.3; O2SAT 95
[2017-01-28] MEDS: SODIUM CHLORIDE 0.9% FLUSH 10 ML FLUSH IV FLUSH SCH ×2 (08:22→21:11)
--- NOTE | 2017-01-28 08:45 | HHI.PR ---
Subjective Remarks Patient seen in follow-up for pulmonary embolism She reports she is feeling great. Anxious to go home. She denies shortness of breath or chest pain. No episodes of bleeding. Objective Vitals Vital Signs Date Time Temp Pulse Resp B/P Pulse Ox O2 Delivery O2 Flow Rate FiO2 01/28/17 00:00 97.1 76 16 100/60 95 01/27/17 20:00 97.8 86 20 107/70 95 01/27/17 16:00 96.4 82 20 98/68 96 01/27/17 12:00 96.6 74 20 133/70 99 I/O 01/27/17 01/27/17 01/27/17 01/28/17 01/28/17 01/28/17 07:00 15:00 23:00 07:00 15:00 23:00 Intake Total 377 ml 870 ml 498 ml Balance 377 ml 870 ml 498 ml Intake Oral 870 ml 120 ml IV Total 377 ml 378 ml # Voids 2 4 1 # Bowel Movements 0 1 0 Result Diagram: 01/28/17 0520 01/27/17 0535 Objective Remarks GENERAL: This is a well-nourished, well-developed patient, in no apparent distress. CARDIOVASCULAR: Normal rate and regular rhythm without murmurs, gallops, or rubs. RESPIRATORY: Good respiratory efforts. Breath sounds equal and clear to auscultation bilaterally. GASTROINTESTINAL: Abdomen soft, non-tender, non-distended. Normal active bowel sounds MUSCULOSKELETAL: Extremities without cyanosis, or edema. NEURO: Alert & Oriented x4 to person, place, time, situation. Moves all ext x4 PSYCH: Appropriate mood and affect. Procedures None A/P Problem List: (1) Bilateral pulmonary embolism ICD Code: I26.99 Status: Acute Plan: The patient initially treated with IV heparin. However she had a precipitous drop in platelets. 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 She was switched to argatroban. Hematology following. HIT antibody positive. Continue argatroban bridging to warfarin. INR still 1.5 today. Goal INR greater than 4 before stopping argatroban. Discussed with pharmacy. Coumadin increased to 5 mg today. She will need follow-up at the hematology clinic. Follow up INR in a.m. Stable from a respiratory standpoint. (2) Thrombocytopenia ICD Code: D69.6 Status: Acute Plan: Steadily improving. 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 Platelets dropped precipitously after exposure to heparin. She was switched to argatroban. HIT antibody positive. Platelets trending back up. Transitioned to Coumadin as above. Follow-up CBC, PT/INR in a.m. (3) Status post total hip replacement, right ICD Code: Z96.641 Status: Acute Plan: Doing well. Ambulating well. Discharge Planning Plan to discharge once INR is therapeutic Violet Donaldson MD January 28, 2017 08:45
[2017-01-28 10:03] LABS: APTT (PATIENT) 51.8 SEC (24.3-30.1)
[2017-01-28 11:49] VITALS: BP 126/71; PULSE 84; RESP 18; TEMP 95.4; O2SAT 98
[2017-01-28] MEDS: SODIUM CHLOR 0.9% IV SCH (13:13)
[2017-01-28] MEDS: ARGATROBAN IV SCH (13:13)
[2017-01-28] MEDS: WARFARIN SOD 4 MG TAB PO SCH (15:29)
[2017-01-28 16:00] VITALS: BP 138/60; PULSE 94; RESP 18; TEMP 95.8; O2SAT 99
[2017-01-28] MEDS ORDERED: WARFARIN SOD 1 MG TAB PO ONE (16:00)
[2017-01-28 17:52] LABS: UFH SEROTONIN RELEASE RESULT POSITIVE (NEGATIVE)
[2017-01-28 20:00] VITALS: BP_SYST 111; BP_SYST 117; BP_DIAS 59; BP_DIAS 74; PULSE 83; PULSE 87; RESP 20; TEMP 96.4; TEMP 98.4; O2SAT 96; O2SAT 99
[2017-01-29] VITALS: BP 117/74; PULSE 83; RESP 20; TEMP 98.4; O2SAT 99
[2017-01-29] MEDS: ARGATROBAN IV SCH ×2 (02:29→16:14)
[2017-01-29] MEDS: SODIUM CHLOR 0.9% IV SCH ×2 (02:29→16:14)
[2017-01-29 07:49] LABS: HEMATOCRIT 33.7 % (35.0-46.0); MEAN CELL VOLUME 86.2 FL (80.0-100.0); MEAN CORPUSCULAR HEMOGLOBIN 28.8 PG (27.0-34.0); MEAN CORPUSCULAR HGB CONC 33.4 % (32.0-36.0); PLATELET COUNT 174 TH/MM3 (150-450); RED BLOOD COUNT 3.91 MIL/MM3 (4.00-5.30); RED CELL DISTRIBUTION WIDTH 12.2 % (11.6-17.2); REVIEW FLAG FINAL
[2017-01-29 08:00] VITALS: BP 139/76; PULSE 77; RESP 18; TEMP 98; O2SAT 94
[2017-01-29 08:05] LABS: APTT (PATIENT) 53.5 SEC (24.3-30.1); INTERNATIONAL NORMALIZED RATIO 1.9 RATIO; PROTHROMBIN TIME - PATIENT 21.4 SEC (9.8-11.6)
[2017-01-29] MEDS: SODIUM CHLORIDE 0.9% FLUSH 10 ML FLUSH IV FLUSH SCH ×2 (08:40→19:21)
--- NOTE | 2017-01-29 10:14 | HHI.PR ---
Subjective Remarks Patient reports she is feeling well. Anxious to go home. No bleeding, shortness of breath, or pain. Platelets now up to 174,000. INR 1.9 this morning. Objective Vitals Vital Signs Date Time Temp Pulse Resp B/P Pulse Ox O2 Delivery O2 Flow Rate FiO2 01/29/17 08:00 98.0 77 18 139/76 94 01/29/17 00:00 98.4 83 20 117/74 99 01/28/17 20:00 96.4 87 20 111/59 96 01/28/17 16:00 95.8 94 18 138/60 99 01/28/17 11:49 95.4 84 18 126/71 98 I/O 01/28/17 01/28/17 01/28/17 01/29/17 01/29/17 01/29/17 07:00 15:00 23:00 07:00 15:00 23:00 Intake Total 498 ml 606 ml 1065 ml 208 ml Balance 498 ml 606 ml 1065 ml 208 ml Intake Oral 120 ml 420 ml 720 ml 60 ml IV Total 378 ml 186 ml 345 ml 148 ml # Voids 1 3 3 2 # Bowel Movements 0 0 0 Result Diagram: 01/29/17 0735 01/27/17 0535 Imaging Last Impressions Lower Extremity Ultrasound 01/21/17 0000 Signed Impressions: Service Date/Time: Saturday, January 21, 2017 08:27 - CONCLUSION: No DVT in either lower extremity. Jorge Conroy MD Chest X-Ray 01/20/17 0922 Signed Impressions: Service Date/Time: Friday, January 20, 2017 09:37 - CONCLUSION: Healed granulomatous disease. No evidence of acute process. Alpesh Baels MD CT Angiography 01/20/17 0000 Signed Impressions: Service Date/Time: Friday, January 20, 2017 10:13 - CONCLUSION: 1. Extensive bilateral pulmonary emboli. 2. 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 Jorge Conroy MD Objective Remarks GENERAL: This is a well-nourished, well-developed patient, in no apparent distress. CARDIOVASCULAR: Normal rate and regular rhythm without murmurs, gallops, or rubs. RESPIRATORY: Good respiratory efforts. Breath sounds equal and clear to auscultation bilaterally. GASTROINTESTINAL: Abdomen soft, non-tender, non-distended. Normal active bowel sounds MUSCULOSKELETAL: Extremities without cyanosis, or edema. NEURO: Alert & Oriented x4 to person, place, time, situation. Moves all ext x4 PSYCH: Appropriate mood and affect. Procedures None A/P Problem List: (1) Bilateral pulmonary embolism ICD Code: I26.99 Status: Acute Plan: The patient initially treated with IV heparin. However she had a precipitous drop in platelets. 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 She was switched to argatroban. Hematology following. HIT antibody positive. Continue argatroban bridging to warfarin. INR still 1.9 today. Goal INR greater than 4 before stopping argatroban. She will need follow-up at the hematology clinic. Follow up INR in a.m. Stable from a respiratory standpoint. (2) Thrombocytopenia ICD Code: D69.6 Status: Acute Plan: Normalized. HIT. Platelets dropped precipitously after exposure to heparin. She was switched to argatroban. HIT antibody positive. Platelets trending back up. Transitioned to Coumadin as above. Follow-up CBC, PT/INR in a.m. (3) Status post total hip replacement, right ICD Code: Z96.641 Status: Acute Plan: Doing well. Ambulating well. 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
[2017-01-29 10:50] LABS: APTT (PATIENT) 55.9 SEC (24.3-30.1)
[2017-01-29 16:00] VITALS: BP 134/65; PULSE 87; RESP 17; TEMP 97.8; O2SAT 96
[2017-01-29] MEDS: WARFARIN SOD 4 MG TAB PO SCH (16:14)
--- NOTE | 2017-01-29 17:51 | PD.ONC.PN ---
Subjective Subjective Remarks wants to go home. Feels ok No other c/o Objective Data Date Time Temp Pulse Resp B/P Pulse Ox O2 Delivery O2 Flow Rate FiO2 01/29/17 16:00 97.8 87 17 134/65 96 01/29/17 08:00 98.0 77 18 139/76 94 01/29/17 00:00 98.4 83 20 117/74 99 01/28/17 20:00 96.4 87 20 111/59 96 01/29/17 01/29/17 01/29/17 07:00 15:00 23:00 Intake Total 208 ml Balance 208 ml Result Diagram: 01/29/17 0735 01/27/17 0535 Laboratory Results Laboratory Tests Test 01/29/17 01/29/17 07:35 10:35 White Blood Count 4.0 TH/MM3 Red Blood Count 3.91 MIL/MM3 Hemoglobin 11.3 GM/DL Hematocrit 33.7 % Mean Corpuscular Volume 86.2 FL Mean Corpuscular Hemoglobin 28.8 PG Mean Corpuscular Hemoglobin 33.4 % Concent Red Cell Distribution Width 12.2 % Platelet Count 174 TH/MM3 Mean Platelet Volume 7.9 FL Prothrombin Time 21.4 SEC Prothromb Time International 1.9 RATIO Ratio Activated Partial 53.5 SEC 55.9 SEC Thromboplast Time Administered Medications Medications (Trade) Dose Ordered Sig/Tim Route PRN Reason Start Time Stop Time Status Last Admin Dose Admin Sodium Chloride (NS Flush) 2 ml BID IV FLUSH 01/20/17 21:00 01/28/17 21:11 Acetaminophen (Tylenol) 650 mg Q4H PRN PO TEMP > 100.4 01/20/17 17:00 01/24/17 05:06 Miscellaneous Information Patient in critical care unit? Ass... Q361D .XX 01/20/17 22:00 01/20/17 22:00 Argatroban/Sodium Chloride (Novastan Inj/NS 250 ml Inj) 250 ml @ 0 mls/hr TITRATE IV 01/22/17 12:15 01/29/17 16:14 Warfarin Sodium (Coumadin) 4 mg DAILY@16 PO 01/29/17 16:00 01/29/17 16:14 Objective Remarks GENERAL: Well-nourished, well-developed patient. SKIN: Warm and dry. HEAD: Normocephalic. EYES: No scleral icterus. No injection or drainage. NECK: Supple, trachea midline. No JVD or lymphadenopathy. LYMPHATIC: No adenopathy. CARDIOVASCULAR: Regular rate and rhythm without murmurs. RESPIRATORY: Breath sounds equal bilaterally. No accessory muscle use. GASTROINTESTINAL: Abdomen soft, non-tender, nondistended. EXTREMITIES: No cyanosis, or edema. MUSCULOSKELETAL: Adequate muscle tone. NEUROLOGICAL: No obvious focal deficit. Awake, alert, and oriented x3. PSYCHIATRIC: Appropriate mood and affect; insight and judgment normal. Assessment/Plan Problem List: (1) Bilateral pulmonary embolism Status: Acute Plan: 01/29 LAURA is positive. 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 plat are normal today. Continue argatroban till INR >4 with coumadin. 01/27/17. 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 Anticoagulant therapy with Coumadin, goal continue anticoagulation minimum 3 months, anticipate longer. Doing well clinically from respiratory standpoint. Eager to go home. Developed after hip replacement surgery. She self d/c the anticoagulant. US showed no LE DVT. Hemodynamically stable. Pulmonary symptoms improved. (2) Thrombocytopenia Status: Acute Plan: 01/29SRA is positive. 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 plat are normal today. Continue argatroban till INR >4 with coumadin. Increase coumadin 01/27/17. Platelet 110K, still not normal. INR 1.5 while on Argatroban, anticipate 1-2 days to reach INR >4 before stopping Argatroban. Monitor platelet until recovery. Monitor for bleeding. Acute thrombocytopenia. 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 She has had recent exposure to heparin within the last 30 days and when she was rechallenged with heparin she developed acute drop in her platelet count. HIT antibody +. Started on argatroban tolerating well, no bleeding. 01/23 Platelet up to 35K. Plan 1. HIT Gaby is positive. 2. LAURA Positive 3. Continue argatroban bridge to therapeutic INR 4. Pt intend to follow up with Dr. Hardy PCP to check pt/inr this week pending DC. Chin Stack MD January 29, 2017 17:51
[2017-01-29] MEDS ORDERED: WARFARIN SOD 1 MG TAB PO ONE (18:00)
[2017-01-29 20:00] VITALS: BP 142/77; PULSE 90; RESP 18; TEMP 95.7; O2SAT 100
[2017-01-30] VITALS: BP 137/69; PULSE 90; RESP 16; TEMP 97.9; O2SAT 98
[2017-01-30] MEDS: ARGATROBAN IV SCH ×2 (06:16→20:27)
[2017-01-30] MEDS: SODIUM CHLOR 0.9% IV SCH ×2 (06:16→20:27)
[2017-01-30 07:36] LABS: HEMATOCRIT 33.5 % (35.0-46.0); MEAN CELL VOLUME 87.3 FL (80.0-100.0); MEAN CORPUSCULAR HEMOGLOBIN 28.4 PG (27.0-34.0); MEAN CORPUSCULAR HGB CONC 32.5 % (32.0-36.0); PLATELET COUNT 178 TH/MM3 (150-450); RED BLOOD COUNT 3.83 MIL/MM3 (4.00-5.30); REVIEW FLAG FINAL; WHITE BLOOD COUNT 3.9 TH/MM3 (4.0-11.0)
--- NOTE | 2017-01-30 07:37 | HHI.PR ---
Subjective Remarks INR is 2.2 today. The patient is in the chair, eating breakfast. No signs of bleeding. Says she feels good today. There is no shortness of breath no cough. No chest pain. She is ambulating without any problems. No fever or chills. Had a normal bowel movement. Wants to go home. Objective Vitals Vital Signs Date Time Temp Pulse Resp B/P Pulse Ox O2 Delivery O2 Flow Rate FiO2 01/30/17 00:00 97.9 90 16 137/69 98 01/29/17 20:00 95.7 90 18 142/77 100 01/29/17 16:00 97.8 87 17 134/65 96 01/29/17 08:00 98.0 77 18 139/76 94 I/O 01/29/17 01/29/17 01/29/17 01/30/17 01/30/17 01/30/17 07:00 15:00 23:00 07:00 15:00 23:00 Intake Total 208 ml 635 ml 146 ml Balance 208 ml 635 ml 146 ml Intake Oral 60 ml 240 ml IV Total 148 ml 395 ml 146 ml # Voids 2 5 1 # Bowel Movements 0 Result Diagram: 01/29/17 0735 01/27/17 0535 Imaging Last Impressions Lower Extremity Ultrasound 01/21/17 0000 Signed Impressions: Service Date/Time: Saturday, January 21, 2017 08:27 - CONCLUSION: No DVT in either lower extremity. Jorge Conroy MD Chest X-Ray 01/20/17 0922 Signed Impressions: Service Date/Time: Friday, January 20, 2017 09:37 - CONCLUSION: Healed granulomatous disease. No evidence of acute process. Alpesh Bales MD CT Angiography 01/20/17 0000 Signed Impressions: Service Date/Time: Friday, January 20, 2017 10:13 - CONCLUSION: 1. Extensive bilateral pulmonary emboli. 2. 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 Jorge Conroy MD Objective Remarks GENERAL: This is a well-nourished, well-developed patient, in no apparent distress. CARDIOVASCULAR: Normal rate and regular rhythm without murmurs, gallops, or rubs. RESPIRATORY: Good respiratory efforts. Breath sounds equal and clear to auscultation bilaterally. GASTROINTESTINAL: Abdomen soft, non-tender, non-distended. Normal active bowel sounds MUSCULOSKELETAL: Extremities without cyanosis, or edema. NEURO: Alert & Oriented x4 to person, place, time, situation. Moves all ext x4 PSYCH: Appropriate mood and affect. 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 However she had a precipitous drop in platelets. 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 She was switched to argatroban. Hematology following. HIT antibody positive. Continue argatroban bridging to warfarin. INR still 2.2 today. Goal INR greater than 4 before stopping argatroban. She will need follow-up at the hematology clinic. Follow up INR in a.m. Stable from a respiratory standpoint. (2) Thrombocytopenia ICD Code: D69.6 Status: Acute Plan: Normalized. HIT. Platelets dropped precipitously after exposure to heparin. She was switched to argatroban. HIT antibody positive. Platelets trending back up. Transitioned to Coumadin as above. Follow-up CBC, PT/INR in a.m. (3) Status post total hip replacement, right ICD Code: Z96.641 Status: Acute Plan: Doing well. Ambulating well. 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 Goal INR greater than 4 before stopping argatroban. Fay Breen MD January 30, 2017 07:37
[2017-01-30 07:48] LABS: INTERNATIONAL NORMALIZED RATIO 2.2 RATIO; PROTHROMBIN TIME - PATIENT 25.5 SEC (9.8-11.6)
[2017-01-30 08:00] VITALS: BP 146/74; PULSE 80; RESP 18; TEMP 97.7; O2SAT 96
[2017-01-30] MEDS: SODIUM CHLORIDE 0.9% FLUSH 10 ML FLUSH IV FLUSH SCH ×2 (09:00→19:07)
[2017-01-30 12:00] VITALS: BP 104/60; PULSE 80; RESP 18; TEMP 96.5; O2SAT 97
[2017-01-30 16:00] VITALS: BP 107/62; PULSE 80; RESP 18; TEMP 97.7; O2SAT 98
[2017-01-30] MEDS: WARFARIN SOD 4 MG TAB PO SCH (16:55)
[2017-01-30] MEDS ORDERED: WARFARIN SOD 2 MG TAB PO STA (17:52)
--- NOTE | 2017-01-30 17:52 | PD.ONC.PN ---
Subjective Subjective Remarks No CP/SOB. No LE edema. No bleeding. Eager to go home. Objective Data Date Time Temp Pulse Resp B/P Pulse Ox O2 Delivery O2 Flow Rate FiO2 01/30/17 12:00 96.5 80 18 104/60 97 01/30/17 08:00 97.7 80 18 146/74 96 01/30/17 00:00 97.9 90 16 137/69 98 01/29/17 20:00 95.7 90 18 142/77 100 01/30/17 01/30/17 01/30/17 07:00 15:00 23:00 Intake Total 146 ml Balance 146 ml Result Diagram: 01/30/17 0555 01/27/17 0535 Laboratory Results Laboratory Tests Test 01/30/17 05:55 White Blood Count 3.9 TH/MM3 Red Blood Count 3.83 MIL/MM3 Hemoglobin 10.9 GM/DL Hematocrit 33.5 % Mean Corpuscular Volume 87.3 FL Mean Corpuscular Hemoglobin 28.4 PG Mean Corpuscular Hemoglobin 32.5 % Concent Red Cell Distribution Width 13.0 % Platelet Count 178 TH/MM3 Mean Platelet Volume 8.4 FL Prothrombin Time 25.5 SEC Prothromb Time International 2.2 RATIO Ratio Activated Partial 57.0 SEC Thromboplast Time Administered Medications Medications (Trade) Dose Ordered Sig/Tim Route PRN Reason Start Time Stop Time Status Last Admin Dose Admin Sodium Chloride (NS Flush) 2 ml BID IV FLUSH 01/20/17 21:00 01/28/17 21:11 Acetaminophen (Tylenol) 650 mg Q4H PRN PO TEMP > 100.4 01/20/17 17:00 01/24/17 05:06 Miscellaneous Information Patient in critical care unit? Ass... Q361D .XX 01/20/17 22:00 01/20/17 22:00 Argatroban/Sodium Chloride (Novastan Inj/NS 250 ml Inj) 250 ml @ 0 mls/hr TITRATE IV 01/22/17 12:15 01/30/17 06:16 Warfarin Sodium (Coumadin) 4 mg DAILY@16 PO 01/29/17 16:00 01/30/17 16:55 Objective Remarks GENERAL: Well-nourished, well-developed patient. SKIN: Warm and dry. HEAD: Normocephalic. EYES: No scleral icterus. No injection or drainage. NECK: Supple, trachea midline. No JVD or lymphadenopathy. LYMPHATIC: No adenopathy. CARDIOVASCULAR: Regular rate and rhythm without murmurs. RESPIRATORY: Breath sounds equal bilaterally. No accessory muscle use. GASTROINTESTINAL: Abdomen soft, non-tender, nondistended. EXTREMITIES: No cyanosis, or edema. MUSCULOSKELETAL: Adequate muscle tone. NEUROLOGICAL: No obvious focal deficit. Awake, alert, and oriented x3. PSYCHIATRIC: Appropriate mood and affect; insight and judgment normal. Assessment/Plan Problem List: (1) Bilateral pulmonary embolism Status: Acute Plan: 01/30 Tolerating argatroban and coumadin. Has been on coumadin 5 mg last 2 days, INR only trended up to 2.2 Increase coumadin to 6mg. 01/29 LAURA is positive. 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 plat are normal today. Continue argatroban till INR >4 with coumadin. 01/27/17. 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 Anticoagulant therapy with Coumadin, goal continue anticoagulation minimum 3 months, anticipate longer. Doing well clinically from respiratory standpoint. Eager to go home. Developed after hip replacement surgery. She self d/c the anticoagulant. US showed no LE DVT. Hemodynamically stable. Pulmonary symptoms improved. (2) Thrombocytopenia Status: Acute Plan: 01/30 Platelet remains normal. 01/29SRA is positive. 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 plat are normal today. Continue argatroban till INR >4 with coumadin. Increase coumadin 01/27/17. Platelet 110K, still not normal. INR 1.5 while on Argatroban, anticipate 1-2 days to reach INR >4 before stopping Argatroban. Monitor platelet until recovery. Monitor for bleeding. Acute thrombocytopenia. 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 She has had recent exposure to heparin within the last 30 days and when she was rechallenged with heparin she developed acute drop in her platelet count. HIT antibody +. Started on argatroban tolerating well, no bleeding. 01/23 Platelet up to 35K. Plan 1. Continue argatroban bridge to therapeutic INR 2. Increase coumadin to 6mg 3. Can stop Argatroban when INR>4 and recheck INR in 4 hours. Can be d/c if INR remains therapeutic. If not, resume the argatroban. 4. Pt intend to follow up with Dr. Hardy PCP to check pt/inr this week pending DC. Justice David MD January 30, 2017 17:52
[2017-01-30 20:00] VITALS: BP 139/83; PULSE 93; RESP 18; TEMP 96.4; O2SAT 98
[2017-01-31] VITALS: BP 151/76; PULSE 82; RESP 16; TEMP 96.4; O2SAT 99
[2017-01-31 07:35] LABS: INTERNATIONAL NORMALIZED RATIO 2.3 RATIO; PROTHROMBIN TIME - PATIENT 26.9 SEC (9.8-11.6)
--- NOTE | 2017-01-31 07:55 | HHI.PR ---
Subjective Remarks Patient is in the chair. She appears in not acute distress. She was ambulating yesterday on the hallways without having chest pain or shortness of breath. However INR is 2.3 today. She is upset and she wants to go home. No fever or chills no cough Objective Vitals Vital Signs Date Time Temp Pulse Resp B/P Pulse Ox O2 Delivery O2 Flow Rate FiO2 01/31/17 00:00 96.4 82 16 151/76 99 01/30/17 20:00 96.4 93 18 139/83 98 01/30/17 16:00 97.7 80 18 107/62 98 01/30/17 12:00 96.5 80 18 104/60 97 01/30/17 08:00 97.7 80 18 146/74 96 I/O 01/30/17 01/30/17 01/30/17 01/31/17 01/31/17 01/31/17 07:00 15:00 23:00 07:00 15:00 23:00 Intake Total 146 ml 1133 ml 131 ml Balance 146 ml 1133 ml 131 ml Intake Oral 840 ml IV Total 146 ml 293 ml 131 ml # Voids 4 # Bowel Movements 0 Result Diagram: 01/30/17 0555 01/27/17 0535 Imaging Last Impressions Lower Extremity Ultrasound 01/21/17 0000 Signed Impressions: Service Date/Time: Saturday, January 21, 2017 08:27 - CONCLUSION: No DVT in either lower extremity. Jorge Conroy MD Chest X-Ray 01/20/17 0922 Signed Impressions: Service Date/Time: Friday, January 20, 2017 09:37 - CONCLUSION: Healed granulomatous disease. No evidence of acute process. Alpesh Bales MD CT Angiography 01/20/17 0000 Signed Impressions: Service Date/Time: Friday, January 20, 2017 10:13 - CONCLUSION: 1. Extensive bilateral pulmonary emboli. 2. 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 Jorge Conroy MD Objective Remarks GENERAL: This is a well-nourished, well-developed patient, in no apparent distress. CARDIOVASCULAR: Normal rate and regular rhythm without murmurs, gallops, or rubs. RESPIRATORY: Good respiratory efforts. Breath sounds equal and clear to auscultation bilaterally. GASTROINTESTINAL: Abdomen soft, non-tender, non-distended. Normal active bowel sounds MUSCULOSKELETAL: Extremities without cyanosis, or edema. NEURO: Alert & Oriented x4 to person, place, time, situation. Moves all ext x4 PSYCH: Appropriate mood and affect. 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 However she had a precipitous drop in platelets. 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 She was switched to argatroban. Hematology following. HIT antibody positive. Continue argatroban bridging to warfarin. INR still 2.3 today. Goal INR greater than 4 before stopping argatroban. She will need follow-up at the hematology clinic. Follow up INR in a.m. Stable from a respiratory standpoint. (2) Thrombocytopenia ICD Code: D69.6 Status: Acute Plan: Normalized. HIT. Platelets dropped precipitously after exposure to heparin. She was switched to argatroban. HIT antibody positive. Platelets trending back up. Transitioned to Coumadin as above. Follow-up CBC, PT/INR in a.m. (3) Status post total hip replacement, right ICD Code: Z96.641 Status: Acute Plan: Doing well. Ambulating well. 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 Goal INR greater than 4 before stopping argatroban. Fay Breen MD January 31, 2017 07:55
[2017-01-31 08:00] VITALS: BP 145/77; PULSE 79; RESP 16; TEMP 97.5; O2SAT 96
[2017-01-31] MEDS: SODIUM CHLORIDE 0.9% FLUSH 10 ML FLUSH IV FLUSH SCH ×2 (09:00→21:00)
[2017-01-31 11:01] LABS: APTT (PATIENT) 60.6 SEC (24.3-30.1)
[2017-01-31 12:00] VITALS: BP 128/81; PULSE 77; RESP 16; TEMP 98; O2SAT 98
[2017-01-31] MEDS: ARGATROBAN IV SCH (12:20)
[2017-01-31] MEDS: SODIUM CHLOR 0.9% IV SCH (12:20)
[2017-01-31 16:00] VITALS: BP 130/78; PULSE 80; RESP 16; TEMP 98.2; O2SAT 97
[2017-01-31] MEDS: WARFARIN SOD 6 MG TAB PO SCH (16:15)
--- NOTE | 2017-01-31 18:53 | PD.ONC.PN ---
Subjective Subjective Remarks Eager to go home. Wants to avoid greens so her InR would go up. Dr. Hardy do not have a PT/INR machine in clinic. Discussed the use of reference labs with standing order. Objective Data Date Time Temp Pulse Resp B/P Pulse Ox O2 Delivery O2 Flow Rate FiO2 01/31/17 16:00 98.2 80 16 130/78 97 01/31/17 12:00 98.0 77 16 128/81 98 01/31/17 08:00 97.5 79 16 145/77 96 01/31/17 00:00 96.4 82 16 151/76 99 01/30/17 20:00 96.4 93 18 139/83 98 01/31/17 01/31/17 01/31/17 07:00 15:00 23:00 Intake Total 131 ml 600 ml Balance 131 ml 600 ml Result Diagram: 01/30/17 0555 01/27/17 0535 Laboratory Results Laboratory Tests Test 01/31/17 01/31/17 05:20 10:37 Prothrombin Time 26.9 SEC Prothromb Time International 2.3 RATIO Ratio Activated Partial 60.6 SEC Thromboplast Time Administered Medications Medications (Trade) Dose Ordered Sig/Tim Route PRN Reason Start Time Stop Time Status Last Admin Dose Admin Sodium Chloride (NS Flush) 2 ml BID IV FLUSH 01/20/17 21:00 01/28/17 21:11 Acetaminophen (Tylenol) 650 mg Q4H PRN PO TEMP > 100.4 01/20/17 17:00 01/24/17 05:06 Miscellaneous Information Patient in critical care unit? Ass... Q361D .XX 01/20/17 22:00 01/20/17 22:00 Argatroban/Sodium Chloride (Novastan Inj/NS 250 ml Inj) 250 ml @ 0 mls/hr TITRATE IV 01/22/17 12:15 01/31/17 12:20 Warfarin Sodium (Coumadin) 6 mg DAILY@16 PO 01/31/17 16:00 01/31/17 16:15 Objective Remarks GENERAL: Well-nourished, well-developed patient. SKIN: Warm and dry. HEAD: Normocephalic. EYES: No scleral icterus. No injection or drainage. NECK: Supple, trachea midline. No JVD or lymphadenopathy. LYMPHATIC: No adenopathy. CARDIOVASCULAR: Regular rate and rhythm without murmurs. RESPIRATORY: Breath sounds equal bilaterally. No accessory muscle use. GASTROINTESTINAL: Abdomen soft, non-tender, nondistended. EXTREMITIES: No cyanosis, or edema. MUSCULOSKELETAL: Adequate muscle tone. NEUROLOGICAL: No obvious focal deficit. Awake, alert, and oriented x3. PSYCHIATRIC: Appropriate mood and affect; insight and judgment normal. Assessment/Plan Problem List: (1) Bilateral pulmonary embolism Status: Acute Plan: 01/31/17. INR 2.3, goal atleast 4 to stop Argatroban. Coumadin increased to 6mg. No bleeding. Denies any SOB. 01/30 Tolerating argatroban and coumadin. Has been on coumadin 5 mg last 2 days , INR only trended up to 2.2 Increase coumadin to 6mg. 01/29 LAURA is positive. 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 plat are normal today. Continue argatroban till INR >4 with coumadin. 01/27/17. 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 Anticoagulant therapy with Coumadin, goal continue anticoagulation minimum 3 months, anticipate longer. Doing well clinically from respiratory standpoint. Eager to go home. Developed after hip replacement surgery. She self d/c the anticoagulant. US showed no LE DVT. Hemodynamically stable. Pulmonary symptoms improved. (2) Thrombocytopenia Status: Acute Plan: 01/31. Platelets normal range now. 01/30 Platelet remains normal. 01/29SRA is positive. 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 plat are normal today. Continue argatroban till INR >4 with coumadin. Increase coumadin 01/27/17. Platelet 110K, still not normal. INR 1.5 while on Argatroban, anticipate 1-2 days to reach INR >4 before stopping Argatroban. Monitor platelet until recovery. Monitor for bleeding. Acute thrombocytopenia. 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 She has had recent exposure to heparin within the last 30 days and when she was rechallenged with heparin she developed acute drop in her platelet count. HIT antibody +. Started on argatroban tolerating well, no bleeding. 01/23 Platelet up to 35K. Plan 1. Continue argatroban bridge to therapeutic INR 2. Continue coumadin to 6mg 3. Can stop Argatroban when INR>4 and recheck INR in 4 hours. Can be d/c if INR remains therapeutic. If not, resume the argatroban. 4. Pt intend to follow up with Dr. Hardy PCP to check pt/inr this week pending DC. Willow Boss MD January 31, 2017 18:53
[2017-01-31 21:10] VITALS: BP 129/72; PULSE 93; RESP 16; TEMP 97.1; O2SAT 96
[2017-02-01 00:20] VITALS: BP 151/73; PULSE 86; RESP 18; TEMP 98; O2SAT 97
[2017-02-01] MEDS: SODIUM CHLOR 0.9% IV SCH ×2 (01:51→16:15)
[2017-02-01] MEDS: ARGATROBAN IV SCH ×2 (01:51→16:15)
[2017-02-01 06:58] LABS: HEMATOCRIT 34.1 % (35.0-46.0); MEAN CELL VOLUME 87.5 FL (80.0-100.0); MEAN CORPUSCULAR HGB CONC 33.1 % (32.0-36.0); PLATELET COUNT 184 TH/MM3 (150-450); RED CELL DISTRIBUTION WIDTH 12.3 % (11.6-17.2); REVIEW FLAG FINAL; WHITE BLOOD COUNT 4.1 TH/MM3 (4.0-11.0)
[2017-02-01 07:09] LABS: APTT (PATIENT) 63.6 SEC (24.3-30.1); INTERNATIONAL NORMALIZED RATIO 2.8 RATIO; PROTHROMBIN TIME - PATIENT 31.9 SEC (9.8-11.6)
[2017-02-01 08:00] VITALS: BP 144/72; PULSE 80; RESP 20; TEMP 96.6; O2SAT 96
--- NOTE | 2017-02-01 08:25 | HHI.PR ---
Subjective Remarks Patient in the chair. Family at bedside. Says she is walking without sob or chest pain. No fever or chills. No n/v/d/c. Objective Vitals Vital Signs Date Time Temp Pulse Resp B/P Pulse Ox O2 Delivery O2 Flow Rate FiO2 02/01/17 04:37 02/01/17 00:20 98.0 86 18 151/73 97 01/31/17 21:10 97.1 93 16 129/72 96 01/31/17 16:00 98.2 80 16 130/78 97 01/31/17 12:00 98.0 77 16 128/81 98 I/O 01/31/17 01/31/17 01/31/17 02/01/17 02/01/17 02/01/17 07:00 15:00 23:00 07:00 15:00 23:00 Intake Total 131 ml 600 ml 397 ml Balance 131 ml 600 ml 397 ml Intake Oral 600 ml IV Total 131 ml 397 ml # Voids 3 4 Result Diagram: 02/01/17 0612 Imaging Last Impressions Lower Extremity Ultrasound 01/21/17 0000 Signed Impressions: Service Date/Time: Saturday, January 21, 2017 08:27 - CONCLUSION: No DVT in either lower extremity. Jorge Conroy MD Chest X-Ray 01/20/17921 Signed Impressions: Service Date/Time: Friday, January 20, 2017 09:37 - CONCLUSION: Healed granulomatous disease. No evidence of acute process. Alpesh Bales MD CT Angiography 01/20/17 0000 Signed Impressions: Service Date/Time: Friday, January 20, 2017 10:13 - CONCLUSION: 1. Extensive bilateral pulmonary emboli. 2. 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 Jorge Conroy MD Objective Remarks GENERAL: This is a well-nourished, well-developed patient, in no apparent distress. CARDIOVASCULAR: Normal rate and regular rhythm without murmurs, gallops, or rubs. RESPIRATORY: Good respiratory efforts. Breath sounds equal and clear to auscultation bilaterally. GASTROINTESTINAL: Abdomen soft, non-tender, non-distended. Normal active bowel sounds MUSCULOSKELETAL: Extremities without cyanosis, or edema. NEURO: Alert & Oriented x4 to person, place, time, situation. Moves all ext x4 PSYCH: Appropriate mood and affect. 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 However she had a precipitous drop in platelets. 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 She was switched to argatroban. Hematology following. HIT antibody positive. Continue argatroban bridging to warfarin. INR still 2.8 today. Goal INR greater than 4 before stopping argatroban. She will need follow-up at the hematology clinic. Follow up INR in a.m. Stable from a respiratory standpoint. (2) Thrombocytopenia ICD Code: D69.6 Status: Acute Plan: Normalized. HIT. Platelets dropped precipitously after exposure to heparin. She was switched to argatroban. HIT antibody positive. Platelets trending back up. Transitioned to Coumadin as above. Follow-up CBC, PT/INR in a.m. (3) Status post total hip replacement, right ICD Code: Z96.641 Status: Acute Plan: Doing well. Ambulating well. 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 Goal INR greater than 4 before stopping argatroban. Fay Breen MD February 01, 2017 08:25
[2017-02-01] MEDS: SODIUM CHLORIDE 0.9% FLUSH 10 ML FLUSH IV FLUSH SCH ×2 (09:00→21:00)
[2017-02-01 12:00] VITALS: BP 139/84; PULSE 85; RESP 20; TEMP 97.2; O2SAT 98
[2017-02-01] MEDS: WARFARIN SOD 6 MG TAB PO SCH (15:58)
[2017-02-01 16:00] VITALS: BP 138/63; PULSE 73; RESP 20; TEMP 96.1; O2SAT 96
[2017-02-01 21:08] VITALS: BP 138/67; PULSE 84; RESP 18; TEMP 96.1; O2SAT 95
[2017-02-02] MEDS: ACETAMINOPHEN 325 MG TAB PO PRN ×2 (05:50→21:03)
[2017-02-02] MEDS: SODIUM CHLOR 0.9% IV SCH ×2 (05:57→20:08)
[2017-02-02] MEDS: ARGATROBAN IV SCH ×2 (05:57→20:08)
[2017-02-02 07:57] LABS: APTT (PATIENT) 68.6 SEC (24.3-30.1); INTERNATIONAL NORMALIZED RATIO 3.2 RATIO; PROTHROMBIN TIME - PATIENT 36.9 SEC (9.8-11.6)
[2017-02-02 08:00] VITALS: BP 127/77; PULSE 72; RESP 20; TEMP 95.4; O2SAT 97
[2017-02-02] MEDS: SODIUM CHLORIDE 0.9% FLUSH 10 ML FLUSH IV FLUSH SCH ×2 (08:30→20:07)
--- NOTE | 2017-02-02 08:39 | HHI.PR ---
Subjective Remarks Eating breakfast. No chest pain or sob. She is sattign well on room air. No pain in her legs. She is ambulating without sob. No fever or chills. No cough. Objective Vitals Vital Signs Date Time Temp Pulse Resp B/P Pulse Ox O2 Delivery O2 Flow Rate FiO2 02/02/17 05:03 02/02/17 00:52 02/01/17 21:08 96.1 84 18 138/67 95 02/01/17 16:00 96.1 73 20 138/63 96 02/01/17 12:00 97.2 85 20 139/84 98 I/O 02/01/17 02/01/17 02/01/17 02/02/17 02/02/17 02/02/17 07:00 15:00 23:00 07:00 15:00 23:00 Intake Total 397 ml 276 ml Balance 397 ml 276 ml IV Total 397 ml 276 ml # Voids 4 2 1 # Bowel Movements 0 Result Diagram: 02/01/17 0612 Imaging Last Impressions Lower Extremity Ultrasound 01/21/17 0000 Signed Impressions: Service Date/Time: Saturday, January 21, 2017 08:27 - CONCLUSION: No DVT in either lower extremity. Jorge Conroy MD Chest X-Ray 01/20/17 0922 Signed Impressions: Service Date/Time: Friday, January 20, 2017 09:37 - CONCLUSION: Healed granulomatous disease. No evidence of acute process. Alpesh Bales MD CT Angiography 01/20/17 0000 Signed Impressions: Service Date/Time: Friday, January 20, 2017 10:13 - CONCLUSION: 1. Extensive bilateral pulmonary emboli. 2. 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 Jorge Conroy MD Objective Remarks GENERAL: This is a well-nourished, well-developed patient, in no apparent distress. CARDIOVASCULAR: Normal rate and regular rhythm without murmurs, gallops, or rubs. RESPIRATORY: Good respiratory efforts. Breath sounds equal and clear to auscultation bilaterally. GASTROINTESTINAL: Abdomen soft, non-tender, non-distended. Normal active bowel sounds MUSCULOSKELETAL: Extremities without cyanosis, or edema. NEURO: Alert & Oriented x4 to person, place, time, situation. Moves all ext x4 PSYCH: Appropriate mood and affect. 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 However she had a precipitous drop in platelets. 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 She was switched to argatroban. Hematology following. HIT antibody positive. Continue argatroban bridging to warfarin. INR still 3.2 today. Goal INR greater than 4 before stopping argatroban. She will need follow-up at the hematology clinic. Follow up INR in a.m. Stable from a respiratory standpoint. (2) Thrombocytopenia ICD Code: D69.6 Status: Acute Plan: Normalized. HIT. Platelets dropped precipitously after exposure to heparin. She was switched to argatroban. HIT antibody positive. Platelets trending back up. Transitioned to Coumadin as above. Follow-up CBC, PT/INR in a.m. (3) Status post total hip replacement, right ICD Code: Z96.641 Status: Acute Plan: Doing well. Ambulating well. 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 Fay Breen MD February 02, 2017 08:39
[2017-02-02 12:00] VITALS: BP 126/67; PULSE 80; RESP 20; TEMP 96.4; O2SAT 97
[2017-02-02 16:00] VITALS: BP 118/66; PULSE 77; RESP 20; TEMP 95.9; O2SAT 96
[2017-02-02] MEDS ORDERED: WARFARIN SOD 7.5 MG TAB PO SCH (16:00)
[2017-02-02 20:39] VITALS: BP 121/69; PULSE 84; RESP 18; TEMP 98; O2SAT 97
[2017-02-03 08:00] VITALS: BP 129/70; PULSE 82; RESP 18; O2SAT 93
[2017-02-03 08:26] LABS: APTT (PATIENT) 74.5 SEC (24.3-30.1); INTERNATIONAL NORMALIZED RATIO 3.8 RATIO; PROTHROMBIN TIME - PATIENT 44.3 SEC (9.8-11.6)
[2017-02-03] MEDS: SODIUM CHLORIDE 0.9% FLUSH 10 ML FLUSH IV FLUSH SCH (09:00)
[2017-02-03] MEDS ORDERED: COUM7.5T PO (10:05)
--- NOTE | 2017-02-03 14:09 | HHI.DS ---
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 The patient presented with worsening shortness of breath, chest pain localized on the anterior chest right below the breasts on bilateral sides which today's radiating up to the anterior chest, rated as 6-7/10 intensity, no clear alleviating factors, taking deep breaths makes the pain worst. The patient denies having fevers or chills, cough, abdominal pain, dysuria. The patient states that she had diarrhea recently which lasted 5 days and resolved in the past couple days. Patient states diarrhea has resolved after she took Imodium. CBC/BMP: 02/01/17 0612 Significant Findings Laboratory Tests Test 02/01/17 02/02/17 02/03/17 06:12 06:29 06:00 Red Blood Count 3.90 MIL/MM3 (4.00-5.30) Hemoglobin 11.3 GM/DL (11.6-15.3) Hematocrit 34.1 % (35.0-46.0) Prothrombin Time 31.9 SEC 36.9 SEC 44.3 SEC (9.8-11.6) (9.8-11.6) (9.8-11.6) Activated Partial 63.6 SEC 68.6 SEC 74.5 SEC Thromboplast Time (24.3-30.1) (24.3-30.1) (24.3-30.1) PE at Discharge GENERAL: NAD, A&Ox3 SKIN: Warm and dry. HEAD: Normocephalic. EYES: No scleral icterus. No injection or drainage. NECK: Supple, trachea midline. No JVD or lymphadenopathy. CARDIOVASCULAR: Regular rate and rhythm without murmurs, gallops, or rubs. RESPIRATORY: Breath sounds equal bilaterally. No accessory muscle use. GASTROINTESTINAL: Abdomen soft, non-tender, nondistended. MUSCULOSKELETAL: No cyanosis, or edema. Hospital Course Mrs. Wynne is a 76-year-old female. She was admitted secondary to bilateral pulmonary emboli. Symptoms have improved with support with oxygen and anticoagulants. 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 Her thrombocytopenia is improving. She is not therapeutic on Coumadin. Prior to this admission she is status post a total hip replacement on the right. She is able to ambulate. Now that she has resolution of her hit syndrome and she has attained therapeutic levels with her Coumadin she is medically stable for discharge. She has follow-up with her primary care doctor. A repeat PT/INR is present in 2-3 days to be forwarded to her PCP. Discharged home today. Pt Condition on Discharge: Stable Discharge Disposition: Discharge Home Discharge Time: <= 30 minutes Discharge Instructions DIET: Follow Instructions for: As Tolerated, No Restrictions Activities you can perform: Regular-No Restrictions Follow up Referrals: PCP Follow-up - 1 Week with Deyanira Sorto MD New Medications: Warfarin (Coumadin) 7.5 Mg Tab 7.5 MG PO DAILY@16 Blood Clot Prevention #30 TAB Keron Velazquez MD February 03, 2017 2:09 pm
== END 2017-02-03 10:52 | disposition home or self-care (01) | DRG 176 ==
LOC: PHED 08:49 → PHEDA 11:17 → PH3B 12:13 → PHICU 17:39 → PH3A 01-24 05:22
PROVIDERS: ADMIT Hospitalist; ATTEND Hospitalist
DX: I26.99 Other pulmonary embolism without acute cor pulmonale (principal); D75.82 Heparin induced thrombocytopenia (HIT); R09.02 Hypoxemia; M16.12 Unilateral primary osteoarthritis, left hip; Z96.643 Presence of artificial hip joint, bilateral; Z87.891 Personal history of nicotine dependence; Z91.14 Patient's other noncompliance with medication regimen
CPT/HCPCS: 71010; 71275; 80048; 80053; 81001; 85025; 85027; 85610; 85730; 86022; 87641; 93005; 93306; 93970; J0883; J1644; J7030; J7050; Q9967